=== PATIENT | male | born 1980 | race Caucasian/White ===

== ENCOUNTER → 2018-11-24 | Outpatient (CLI) | payer BC ==
--- NOTE | 2018-11-24 13:35 | ECHOS ---
STRESS ECHOCARDIOGRAM DATE OF SERVICE: 11/24/2018 INDICATIONS: Chest pain. MEDICATIONS: Lisinopril, nadolol, metformin, hydrocodone, lovastatin. BASELINE HEART RATE: 68 BASELINE BLOOD PRESSURE: 143/68 MAXIMUM HEART RATE: 163 MAXIMUM BLOOD PRESSURE: 166/62 85% MPHR: 154 100% MPHR: 181 METS: 12.1 MAXIMUM STAGE REACHED: IV TOTAL EXERCISE TIME: 11 minutes 30 seconds CLINICAL INFORMATION: Baseline rhythm is a sinus mechanism, rate of 68, normal axis, early repolarization changes with nonspecific T-wave inversion. Baseline blood pressure 143/68 mmHg. Patient exercised on Kishore protocol for 11 minutes 30 seconds reaching a peak rate of 163 beats per minute which is equal to 90% maximum predicted heart rate. Peak blood pressure 166/62 mmHg. Test was terminated secondary to fatigue. There was no chest pain. Electrocardiograph monitoring revealed a [address]-segment depression in inferolateral leads that improved in recovery. Baseline echocardiogram revealed normal wall thickening and motion. At peak exercise, there was normal wall motion augmentation with no hypokinesis or dyskinesis. CONCLUSION: 1. Good exercise tolerance with nondiagnostic electrocardiograph stress testing secondary to baseline EKG abnormality. 2. Normal stress echocardiogram with no evidence of stress induced ischemia. MMODL / IJN: [id number] /
== END ==
LOC: RADNMMAIN 09:03
PROVIDERS: ATTEND Internal Medicine
DX: R94.31 Abnormal electrocardiogram [ECG] [EKG] (principal); R07.89 Other chest pain
CPT/HCPCS: 93351

== ENCOUNTER → 2019-08-12 | Outpatient (CLI) | payer BC ==
--- NOTE | 2019-08-12 13:13 | US ---
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 MD felt swelling right parotid gland. Right parotid = 4.4 x 3.5 x 2.0 cm with isoechoic area in mid gland = 0.9 x 0.6 x 0.6 cm with no bloo d flow. This was not seen on contralateral side. Left parotid = 5.5 x 2.9 x 1.6 cm IMPRESSION: Nonspecific right parotid lesion. Consider tissue diagnosis.
== END | disposition home or self-care (01) ==
LOC: RADUSWWP 12:40
PROVIDERS: ATTEND Family Medicine
DX: K11.9 Disease of salivary gland, unspecified (principal)
CPT/HCPCS: 76536

== ENCOUNTER 2019-09-08 12:23 | Day surgery (SDC) | payer BC ==
[2019-09-08 12:47] VITALS: BP 124/84; PULSE 67; RESP 14; TEMP 98
--- NOTE | 2019-09-08 13:30 | US ---
Discontinued fine-needle aspiration HISTORY: Abnormal ultrasound, palpable mass Correlation to ultrasound 08/12/2019 Ultrasound performed of the site of patient's palpable abnormality shows a hypoechoic crescentic focu s with some increased through transmission, echogenic center. Grayscale and color Doppler performed. IMPRESSION: Benign lymph node within the parotid gland. Discontinued biopsy. Follow-up as indicated t o assess for stability.
== END 2019-09-08 13:15 | disposition home or self-care (01) ==
LOC: RADPROMAIN 12:23
PROVIDERS: ATTEND Otolaryngology
DX: K11.8 Other diseases of salivary glands (principal)
CPT/HCPCS: 76536

== ENCOUNTER → 2020-07-28 | Outpatient (CLI) | payer BC ==
--- NOTE | 2020-07-28 10:43 | XR ---
EXAMINATION TYPE: XR chest 2V DATE OF EXAM: 07/28/2020 COMPARISON: None INDICATION: Presurgical clearance TECHNIQUE: Frontal and lateral views of the chest are obtained. FINDINGS: The heart size is normal. The pulmonary vasculature is normal. The lungs are clear. IMPRESSION: 1. No acute pulmonary process.
[2020-07-28 11:10] LABS: HCT 43.3 % (39.0-53.0); HGB 14.5 gm/dL (13.0-17.5); MCH 31.3 pg (25.0-35.0); MCHC 33.4 g/dL (31.0-37.0); MCV 93.6 fL (80.0-100.0); Mean Platelet Volume 7.9; Platelet Count 239 k/uL (150-450); RBC 4.63 m/uL (4.30-5.90); RDW 13.5 % (11.5-15.5); WBC 6.5 k/uL (3.8-10.6)
[2020-07-28 11:21] LABS: African American GFR (CKD) >90 (>60 ml/min/1.73 sqM); Anion Gap 7 mmol/L; Blood Urea Nitrogen 13 mg/dL (9-20); Calcium 9.7 mg/dL (8.4-10.2); Carbon Dioxide 31 mmol/L (22-30); Chloride 103 mmol/L (98-107); Glucose 101 mg/dL (74-99); INR 0.9 (<1.2); Non-African American GFR(CKD) >90 (>60 ml/min/1.73 sqM); Partial Thromboplastin Time 21.9 sec (22.0-30.0); Potassium 4.6 mmol/L (3.5-5.1); Prothrombin Time 9.6 sec (9.0-12.0); Sodium 141 mmol/L (137-145)
[2020-07-28 11:40] LABS: Appearance,Urine Clear (Clear); Bilirubin,Urine Negative (Negative); Blood,Urine Negative (Negative); Color,Urine Yellow; Glucose,Urine (UA) Negative (Negative); Ketones,Urine Negative (Negative); Leukocyte Esterase,Urine Negative (Negative); Nitrite,Urine Negative (Negative); Protein,Urine Negative (Negative); Specific Gravity,Urine 1.025 (1.001-1.035); Urobilinogen,Urine <2.0 mg/dL (<2.0)
== END | disposition home or self-care (01) ==
LOC: RADXRMAIN 08:42
PROVIDERS: ATTEND Orthopaedic Surgery Orthopaedic Surgery of the Spine
DX: E78.5 Hyperlipidemia, unspecified (principal); R00.1 Bradycardia, unspecified; E11.9 Type 2 diabetes mellitus without complications
CPT/HCPCS: 36415; 71046; 80048; 81003; 85027; 85610; 85730; 93005

== ENCOUNTER → 2021-04-17 | Outpatient (CLI) | payer BC ==
--- NOTE | 2021-04-17 08:05 | US ---
EXAMINATION TYPE: US liver DATE OF EXAM: 04/17/2021 COMPARISON: NONE CLINICAL HISTORY: R94.5 Abnormal results of liver function studies. EXAM MEASUREMENTS: Liver Length: 15.5 cm Gallbladder Wall: 0.1 cm CBD: 0.3 cm Right Kidney: 9.6 x 5.5 x 5.4 cm Pancreas: visualized portions wnl, limited by overlying midline bowel gas Liver: increased attenuation, decreased visualization of vessels suggestive of fatty infiltrate Gallbladder: wnl Evidence for sonographic Osman's sign: no CBD: visualized portions wnl, limited by overlying bowel gas Right Kidney: wnl IMPRESSION: Hepatic steatosis
== END | disposition home or self-care (01) ==
LOC: RADUSWWP 07:04
PROVIDERS: ATTEND Family Medicine
DX: K76.0 Fatty (change of) liver, not elsewhere classified (principal)
CPT/HCPCS: 76705

== ENCOUNTER → 2021-06-15 | Outpatient (CLI) | payer BC ==
--- NOTE | 2021-06-15 08:47 | XR ---
EXAMINATION TYPE: XR wrist complete LT DATE OF EXAM: 06/15/2021 CLINICAL HISTORY: pain TECHNIQUE: Frontal, lateral and oblique images of the left wrist are obtained. COMPARISON: None. FINDINGS: There is no acute fracture/dislocation evident. The joint spaces appear within normal kraus its. The overlying soft tissue appears unremarkable. IMPRESSION: There is no acute fracture or dislocation seen. ICD 10 NO FRACTURE, INITIAL EVALUATION
== END | disposition home or self-care (01) ==
LOC: RADXRMAIN 08:20
PROVIDERS: ATTEND Family Medicine
DX: M25.532 Pain in left wrist (principal)

== ENCOUNTER → 2021-08-23 | Outpatient (CLI) | payer BC ==
[2021-08-23 15:11] LABS: Basophils # (A) 0.03 X 10*3/uL (0.00-0.10); Basophils % (A) 0.5 %; Eosinophils % (A) 3.1 %; HCT 45.8 % (39.6-50.0); HGB 14.8 g/dL (13.0-17.0); Lymphocytes # (A) 2.18 X 10*3/uL (0.90-5.00); Lymphocytes % (A) 33.3 %; MCH 29.8 pg (27.0-32.0); MCHC 32.3 g/dL (32.0-37.0); MCV 92.2 fL (80.0-97.0); Mean Platelet Volume 10.8 fL (9.5-12.2); Monocytes # (A) 0.44 X 10*3/uL (0.20-1.00); Monocytes % (A) 6.7 %; Neutrophils # (A) 3.66 X 10*3/uL (1.80-7.70); Neutrophils % (A) 55.8 %; Platelet Count 278 X 10*3/uL (140-440); RBC 4.97 X 10*6/uL (4.40-5.60); RDW 13.2 % (11.5-14.5); WBC 6.55 X 10*3/uL (4.50-10.00)
[2021-08-23 16:07] LABS: % Iron Saturation 18.6 (15.00-50.00)
[2021-08-23 16:18] LABS: African American GFR (CKD) 100.5 (60.0-200.0); Albumin 4.9 g/dL (3.8-4.9); Albumin/Globulin Ratio 2.14 (1.60-3.17); Anion Gap 13.5 mmol/L (10.00-18.00); BUN/Creat Ratio 19.81 Ratio (12.00-20.00); Calcium 9.6 mg/dL (8.7-10.3); Carbon Dioxide 20.7 mmol/L (20.0-27.5); Globulin 2.3 g/dL (1.6-3.3); Non-African American GFR(CKD) 86.7 (60.0-200.0); Potassium 4.5 mmol/L (3.5-5.5); Total Bilirubin 0.4 mg/dL (0.30-1.20); Total Protein 7.2 g/dL (6.2-8.2)
[2021-08-23 17:52] LABS: Hepatitis B Surface Antigen Nonreactive (Nonreactive); Hepatitis C IgG Antibody Nonreactive (Nonreactive)
[2021-08-24 13:05] LABS: Protein, Total 7.4 g/dL (6.2-8.2)
== END | disposition home or self-care (01) ==
LOC: LABWHC1 08:20
PROVIDERS: ATTEND Internal Medicine Gastroenterology
DX: R74.8 Abnormal levels of other serum enzymes (principal)
CPT/HCPCS: 36415; 80053; 82103; 82104; 82390; 82728; 83540; 83550; 84165; 85025; 86038; 86803; 87340

== ENCOUNTER → 2021-10-30 | Outpatient (CLI) | payer BC ==
[2021-10-30 14:45] LABS: HCT 43.4 % (39.6-50.0); HGB 14.3 g/dL (13.0-17.0); MCH 30.7 pg (27.0-32.0); MCHC 32.9 g/dL (32.0-37.0); MCV 93.1 fL (80.0-97.0); Mean Platelet Volume 10.8 fL (9.5-12.2); NRBC Per 100 WBC 0 /100 WBCS (0.0-0.0); Platelet Count 250 X 10*3/uL (140-440); RBC 4.66 X 10*6/uL (4.40-5.60); RDW 13.2 % (11.5-14.5); WBC 8.09 X 10*3/uL (4.50-10.00)
[2021-10-30 15:22] LABS: African American GFR (CKD) 95.5 (60.0-200.0); Anion Gap 12.3 mmol/L (10.00-18.00); BUN/Creat Ratio 12.82 Ratio (12.00-20.00); Blood Urea Nitrogen 14.1 mg/dL (9.0-27.0); Calcium 9.4 mg/dL (8.7-10.3); Carbon Dioxide 22.7 mmol/L (20.0-27.5); Non-African American GFR(CKD) 82.4 (60.0-200.0); Potassium 4.1 mmol/L (3.5-5.5)
== END | disposition home or self-care (01) ==
LOC: LABWHC1 08:45
PROVIDERS: ATTEND Psychiatry & Neurology Neurology
DX: E87.2 Acidosis (principal); Z51.81 Encounter for therapeutic drug level monitoring
CPT/HCPCS: 36415; 80048; 85027

== ENCOUNTER → 2022-02-20 | Outpatient (CLI) | payer BC ==
[2022-02-20 14:51] LABS: African American GFR (CKD) 95.5 (60.0-200.0); Albumin 4.5 g/dL (3.8-4.9); Albumin/Globulin Ratio 1.8 (1.60-3.17); Anion Gap 11.8 mmol/L (10.00-18.00); BUN/Creat Ratio 12.18 Ratio (12.00-20.00); Blood Urea Nitrogen 13.4 mg/dL (9.0-27.0); Carbon Dioxide 22.2 mmol/L (20.0-27.5); Globulin 2.5 g/dL (1.6-3.3); Non-African American GFR(CKD) 82.4 (60.0-200.0); Potassium 3.7 mmol/L (3.5-5.5); Total Bilirubin 0.4 mg/dL (0.30-1.20)
== END | disposition home or self-care (01) ==
LOC: LABWHC1 08:43
PROVIDERS: ATTEND Internal Medicine Gastroenterology
DX: K76.0 Fatty (change of) liver, not elsewhere classified (principal)
CPT/HCPCS: 36415; 80053

== ENCOUNTER → 2023-02-18 | Outpatient (CLI) | payer BC ==
[2023-02-18 15:58] LABS: African American GFR (CKD) 92.8 (60.0-200.0); Albumin 4.5 g/dL (3.8-4.9); Anion Gap 9.2 mmol/L (10.00-18.00); BUN/Creat Ratio 15.54 Ratio (12.00-20.00); Blood Urea Nitrogen 17.4 mg/dL (9.0-27.0); Calcium 9.6 mg/dL (8.7-10.3); Carbon Dioxide 26.2 mmol/L (20.0-27.5); Globulin 2.3 g/dL (1.6-3.3); Potassium 4.2 mmol/L (3.5-5.5); Total Bilirubin 0.4 mg/dL (0.30-1.20); Total Protein 6.8 g/dL (6.2-8.2)
== END | disposition home or self-care (01) ==
LOC: LABWHC1 09:32
PROVIDERS: ATTEND Internal Medicine Cardiovascular Disease
DX: K76.0 Fatty (change of) liver, not elsewhere classified (principal)
CPT/HCPCS: 36415; 80053

== ENCOUNTER 2023-12-22 18:41 | Observation (INO) | payer BC ==
[2023-12-22] MEDS: SODIUM CHLORIDE 0.9% 1,000 ML IV STA (20:08)
--- NOTE | 2023-12-22 20:29 | ED ---
Dizziness HPI - General Chief Complaint: Dizziness Stated Complaint: Abn Labs Time Seen by Provider: 12/22/23 19:42 Source: patient Mode of arrival: ambulatory Limitations: no limitations - History of Present Illness Initial Comments: 43-year-old male presenting with chief complaint of syncopal episode. Patient states that yesterday he was having chest pain, got up out of bed and started walking to the bathroom when he felt dizzy and had a syncopal episode. He was by himself so he does not know how long he was unconscious for. He does have a red spot near left side of his forehead and his eye, he presumes that this is where he hit his head. States that when he woke up his symptoms had resolved. He was advised by friends to seek evaluation. He went to the [facility] today who advised him to report to the ER. Today he is asymptomatic. He is having no chest pain, difficulty breathing, abdominal pain, nausea, vomiting, fever, cough, congestion, sore throat, headache, vision or hearing changes. No history of blood clot or recent surgery. Patient did recently drive to and from [place]. No lower extremity swelling. - Related Data Home Medications Medication Instructions Recorded Confirmed Lovastatin [Mevacor] 40 mg PO HS 09/01/19 09/01/19 lisinopriL [Zestril] 5 mg PO DAILY 09/01/19 09/01/19 metFORMIN HCL [Glucophage] 500 mg PO TID 09/01/19 09/01/19 nadoloL [Nadolol] 40 mg PO DAILY 09/01/19 09/01/19 Allergies Allergy/AdvReac Type Severity Reaction Status Date / Time No Known Allergies Allergy Verified 12/22/23 18:48 Review of Systems ROS Statement: Those systems with pertinent positive or pertinent negative responses have been documented in the HPI. ROS Other: All systems not noted in ROS Statement are negative. Past Medical History Past Medical History: Diabetes Mellitus, Hyperlipidemia Additional Past Medical History / Comment(s): right parotid mass being investigated History of Any Multi-Drug Resistant Organisms: None Reported Past Surgical History: Orthopedic Surgery, Tonsillectomy Additional Past Surgical History / Comment(s): left knee surgery x2, left shoulder surgery Past Anesthesia/Blood Transfusion Reactions: No Reported Reaction Past Alcohol Use History: Rare Past Drug Use History: None Reported - Past Family History Mother Family Medical History: No Reported History General Exam Limitations: no limitations General appearance: alert, in no apparent distress Head exam: Present: atraumatic, normocephalic Eye exam: Present: normal appearance, PERRL, EOMI Pupils: Present: normal accommodation Neck exam: Present: normal inspection. Absent: meningismus Respiratory exam: Present: normal lung sounds bilaterally. Absent: respiratory distress, wheezes, rales, rhonchi, stridor Cardiovascular Exam: Present: regular rate, normal rhythm, normal heart sounds. Absent: systolic murmur, diastolic murmur, rubs, gallop, clicks Extremities exam: Absent: pedal edema Neurological exam: Present: alert, oriented X3 Psychiatric exam: Present: normal affect, normal mood Skin exam: Present: warm, dry Course Vital Signs 12/22/23 12/22/23 12/22/23 18:44 20:17 20:19 Temperature 98.1 F Pulse Rate 77 Pulse Rate [ 75 Right Sitting Pulse Oximetery ] Pulse Rate [ Right Standing Pulse Oximetery ] Pulse Rate [ 73 Right Supine Pulse Oximetery ] Respiratory 16 18 18 Rate Blood Pressure 148/100 Blood Pressure 141/83 [Right Arm Sitting] Blood Pressure [Right Arm Standing] Blood Pressure 125/84 [Right Arm Supine] O2 Sat by Pulse 100 98 98 Oximetry 12/22/23 12/22/23 12/22/23 20:21 22:00 23:02 Temperature 97.6 F Pulse Rate 62 72 Pulse Rate [ Right Sitting Pulse Oximetery ] Pulse Rate [ 71 Right Standing Pulse Oximetery ] Pulse Rate [ Right Supine Pulse Oximetery ] Respiratory 18 18 18 Rate Blood Pressure 132/76 156/92 Blood Pressure [Right Arm Sitting] Blood Pressure 142/91 [Right Arm Standing] Blood Pressure [Right Arm Supine] O2 Sat by Pulse 98 97 100 Oximetry EKG Findings - EKG Comments: EKG Findings:: Sinus rhythm ventricular rate 71. [place] interval 146. QRS 89. QT 361. QTc 383. No ST deviation or T wave inversion. Medical Decision Making - Medical Decision Making Was pt. sent in by a medical professional or institution (, PA, ADMISSION SPECIALIST, urgent care, hospital, or fpc...) When possible be specific @ -No Did you speak to anyone other than the patient for history (EMS, parent, family, police, friend...)? What history was obtained from this source @ -No Did you review nursing and triage notes (agree or disagree)? Why? @ -I reviewed and agree with nursing and triage notes Were old charts reviewed (outside hosp., previous admission, EMS record, old EKG, old radiological studies, urgent care reports/EKG's, fpc records)? Report findings @ -No old charts were reviewed Differential Diagnosis (chest pain, altered mental status, abdominal pain women, abdominal pain men, vaginal bleeding, weakness, fever, dyspnea, syncope, head ache, dizziness, GI bleed, back pain, seizure, CVA, palpatations, mental health, musculoskeletal)? @ -MDM Differential Syncope: Valvular disease, hypertrophic cardiomyopathy, pulmonary embolism, tamponade, tachycardia, bradycardia, TN, hypovolemia, hemorrhage, dissection, anemia, intracranial hemorrhage, seizure, hypoglycemia, carbon monoxide poisoning this is not meant to be an all-inclusive list. EKG interpreted by me (3pts min.). @ -As above X-rays interpreted by me (1pt min.). @ -Chest x-ray shows no acute process CT interpreted by me (1pt min.). @ -None done U/S interpreted by me (1pt. min.). @ -None done What testing was considered but not performed or refused? (CT, X-rays, U/S, labs)? Why? @ -None What meds were considered but not given or refused? Why? @ -None Did you discuss the management of the patient with other professionals (professionals i.e. , PA, ADMISSION SPECIALIST, lab, RT, psych nurse, social service assistant, events and promotions assistant, teacher, executive officer special warfare team, rn field case manager)? Give summary @ -I spoke with Dr. Lopez who accepted admission Was smoking cessation discussed for >3mins.? @ -No Was critical care preformed (if so, how long)? @ -No Were there social determinants of health that impacted care today? How? (Homelessness, low income, unemployed, alcoholism, drug addiction, transporta tion, low edu. Level, literacy, decrease access to med. care, [facility], rehab)? @ -No Was there de-escalation of care discussed even if they declined (Discuss DNR or withdrawal of care, Hospice)? DNR status @ -No What co-morbidities impacted this encounter? (DM, HTN, Smoking, COPD, CAD, Cancer, CVA, ARF, Chemo, Hep., AIDS, mental health diagnosis, sleep apnea, morbid obesity)? @ -None Was patient admitted / discharged? Hospital course, mention meds given and route, prescriptions, significant lab abnormalities, going to OR and other pertinent info. @ -43-year-old male presenting with chief complaint of syncope after an episode of chest pain. History and physical exam were conducted. Lab work shows no leukocytosis or anemia. Negative troponin and D-dimer. He is negative for influenza, RSV, COVID. EKG shows sinus rhythm. Chest x-ray shows no acute process. Urine toxicology positive for TCAs, patient admits to taking muscle relaxers. Patient will be admitted for echocardiogram. He is agreeable with this plan. I discussed this case with my attending Dr. Ruiz Undiagnosed new problem with uncertain prognosis? @ -No Drug Therapy requiring intensive monitoring for toxicity (Heparin, Nitro, Insulin, Cardizem)? @ -No Were any procedures done? @ -No Diagnosis/symptom? @ -Syncope, chest pain Acute, or Chronic, or Acute on Chronic? @ -Acute Uncomplicated (without systemic symptoms) or Complicated (systemic symptoms)? @ -Complicated Side effects of treatment? @ -No Exacerbation, Progression, or Severe Exacerbation? @ -No Poses a threat to life or bodily function? How? (Chest pain, USA, TN, pneumonia, PE, COPD, DKA, ARF, appy, cholecystitis, CVA, Diverticulitis, Homicidal, Suicidal, threat to staff... and all critical care pts) @ -Yes - Lab Data Result diagrams: 12/22/23 20:45 12/22/23 20:08 Lab Results 12/22/23 12/22/23 12/22/23 Range/Units 20:08 20:08 20:08 WBC (3.8-10.6) k/uL RBC (4.30-5.90) m/uL Hgb (13.0-17.5) gm/dL Hct (39.0-53.0) % MCV (80.0-100.0) fL MCH (25.0-35.0) pg MCHC (31.0-37.0) g/dL RDW (11.5-15.5) % Plt Count (150-450) k/uL MPV Neutrophils % % Lymphocytes % % Monocytes % % Eosinophils % % Basophils % % Neutrophils # (1.3-7.7) k/uL Lymphocytes # (1.0-4.8) k/uL Monocytes # (0-1.0) k/uL Eosinophils # (0-0.7) k/uL Basophils # (0-0.2) k/uL PT 10.7 (10.0-12.5) sec INR 1.0 (<1.2) D-Dimer 0.22 (<0.60) mg/L FEU Sodium 142 (137-145) mmol/L Potassium 3.9 (3.5-5.1) mmol/L Chloride 108 H (98-107) mmol/L Carbon Dioxide 24 (22-30) mmol/L Anion Gap 10 mmol/L BUN 15 (9-20) mg/dL Creatinine 1.06 (0.66-1.25) mg/dL Est GFR (CKD-EPI)AfAm >90 (>60 ml/min/1.73 sqM) Est GFR (CKD-EPI)NonAf 86 (>60 ml/min/1.73 sqM) Glucose 159 H (74-99) mg/dL Plasma Lactic Acid Randolph 1.8 (0.7-2.0) mmol/L Calcium 9.2 (8.4-10.2) mg/dL Total Bilirubin 0.6 (0.2-1.3) mg/dL AST 26 (17-59) U/L ALT 45 (4-49) U/L Alkaline Phosphatase 76 (38-126) U/L Troponin I (0.000-0.034) ng/mL Total Protein 7.3 (6.3-8.2) g/dL Albumin 4.4 (3.5-5.0) g/dL Urine Color Urine Appearance (Clear) Urine pH (5.0-8.0) Ur Specific Ilfeld (1.001-1.035) Urine Protein (Negative) Urine Glucose (UA) (Negative) Urine Ketones (Negative) Urine Blood (Negative) Urine Nitrite (Negative) Urine Bilirubin (Negative) Urine Urobilinogen (<2.0) mg/dL Ur Leukocyte Esterase (Negative) Urine Opiates Screen (NotDetected) Ur Oxycodone Screen (NotDetected) Urine Methadone Screen (NotDetected) Ur Barbiturates Screen (NotDetected) U Tricyclic Antidepress (NotDetected) Ur Phencyclidine Scrn (NotDetected) Ur Amphetamines Screen (NotDetected) U Methamphetamines Scrn (NotDetected) U Benzodiazepines Scrn (NotDetected) Urine Cocaine Screen (NotDetected) U Marijuana (THC) Screen (NotDetected) Influenza Type A (PCR) (Not Detectd) Influenza Type B (PCR) (Not Detectd) RSV (PCR) (Not Detectd) SARS-CoV-2 (PCR) (Not Detectd) 12/22/23 12/22/23 12/22/23 Range/Units 20:08 20:08 20:45 WBC 7.7 (3.8-10.6) k/uL RBC 4.39 (4.30-5.90) m/uL Hgb 13.4 (13.0-17.5) gm/dL Hct 40.9 (39.0-53.0) % MCV 93.1 (80.0-100.0) fL MCH 30.5 (25.0-35.0) pg MCHC 32.7 (31.0-37.0) g/dL RDW 13.1 (11.5-15.5) % Plt Count 224 (150-450) k/uL MPV 7.9 Neutrophils % 65 % Lymphocytes % 26 % Monocytes % 5 % Eosinophils % 1 % Basophils % 0 % Neutrophils # 5.0 (1.3-7.7) k/uL Lymphocytes # 2.0 (1.0-4.8) k/uL Monocytes # 0.4 (0-1.0) k/uL Eosinophils # 0.1 (0-0.7) k/uL Basophils # 0.0 (0-0.2) k/uL PT (10.0-12.5) sec INR (<1.2) D-Dimer (<0.60) mg/L FEU Sodium (137-145) mmol/L Potassium (3.5-5.1) mmol/L Chloride (98-107) mmol/L Carbon Dioxide (22-30) mmol/L Anion Gap mmol/L BUN (9-20) mg/dL Creatinine (0.66-1.25) mg/dL Est GFR (CKD-EPI)AfAm (>60 ml/min/1.73 sqM) Est GFR (CKD-EPI)NonAf (>60 ml/min/1.73 sqM) Glucose (74-99) mg/dL Plasma Lactic Acid Randolph (0.7-2.0) mmol/L Calcium (8.4-10.2) mg/dL Total Bilirubin (0.2-1.3) mg/dL AST (17-59) U/L ALT (4-49) U/L Alkaline Phosphatase (38-126) U/L Troponin I <0.012 (0.000-0.034) ng/mL Total Protein (6.3-8.2) g/dL Albumin (3.5-5.0) g/dL Urine Color Urine Appearance (Clear) Urine pH (5.0-8.0) Ur Specific Ilfeld (1.001-1.035) Urine Protein (Negative) Urine Glucose (UA) (Negative) Urine Ketones (Negative) Urine Blood (Negative) Urine Nitrite (Negative) Urine Bilirubin (Negative) Urine Urobilinogen (<2.0) mg/dL Ur Leukocyte Esterase (Negative) Urine Opiates Screen (NotDetected) Ur Oxycodone Screen (NotDetected) Urine Methadone Screen (NotDetected) Ur Barbiturates Screen (NotDetected) U Tricyclic Antidepress (NotDetected) Ur Phencyclidine Scrn (NotDetected) Ur Amphetamines Screen (NotDetected) U Methamphetamines Scrn (NotDetected) U Benzodiazepines Scrn (NotDetected) Urine Cocaine Screen (NotDetected) U Marijuana (THC) Screen (NotDetected) Influenza Type A (PCR) Not Detected (Not Detectd) Influenza Type B (PCR) Not Detected (Not Detectd) RSV (PCR) Not Detected (Not Detectd) SARS-CoV-2 (PCR) Not Detected (Not Detectd) 12/22/23 12/22/23 Range/Units 22:03 22:03 WBC (3.8-10.6) k/uL RBC (4.30-5.90) m/uL Hgb (13.0-17.5) gm/dL Hct (39.0-53.0) % MCV (80.0-100.0) fL MCH (25.0-35.0) pg MCHC (31.0-37.0) g/dL RDW (11.5-15.5) % Plt Count (150-450) k/uL MPV Neutrophils % % Lymphocytes % % Monocytes % % Eosinophils % % Basophils % % Neutrophils # (1.3-7.7) k/uL Lymphocytes # (1.0-4.8) k/uL Monocytes # (0-1.0) k/uL Eosinophils # (0-0.7) k/uL Basophils # (0-0.2) k/uL PT (10.0-12.5) sec INR (<1.2) D-Dimer (<0.60) mg/L FEU Sodium (137-145) mmol/L Potassium (3.5-5.1) mmol/L Chloride (98-107) mmol/L Carbon Dioxide (22-30) mmol/L Anion Gap mmol/L BUN (9-20) mg/dL Creatinine (0.66-1.25) mg/dL Est GFR (CKD-EPI)AfAm (>60 ml/min/1.73 sqM) Est GFR (CKD-EPI)NonAf (>60 ml/min/1.73 sqM) Glucose (74-99) mg/dL Plasma Lactic Acid Randolph (0.7-2.0) mmol/L Calcium (8.4-10.2) mg/dL Total Bilirubin (0.2-1.3) mg/dL AST (17-59) U/L ALT (4-49) U/L Alkaline Phosphatase (38-126) U/L Troponin I (0.000-0.034) ng/mL Total Protein (6.3-8.2) g/dL Albumin (3.5-5.0) g/dL Urine Color Colorless Urine Appearance Clear (Clear) Urine pH 7.0 (5.0-8.0) Ur Specific Ilfeld 1.015 (1.001-1.035) Urine Protein Negative (Negative) Urine Glucose (UA) Negative (Negative) Urine Ketones Negative (Negative) Urine Blood Negative (Negative) Urine Nitrite Negative (Negative) Urine Bilirubin Negative (Negative) Urine Urobilinogen <2.0 (<2.0) mg/dL Ur Leukocyte Esterase Negative (Negative) Urine Opiates Screen Not Detected (NotDetected) Ur Oxycodone Screen Not Detected (NotDetected) Urine Methadone Screen Not Detected (NotDetected) Ur Barbiturates Screen Not Detected (NotDetected) U Tricyclic Antidepress Detected H (NotDetected) Ur Phencyclidine Scrn Not Detected (NotDetected) Ur Amphetamines Screen Not Detected (NotDetected) U Methamphetamines Scrn Not Detected (NotDetected) U Benzodiazepines Scrn Not Detected (NotDetected) Urine Cocaine Screen Not Detected (NotDetected) U Marijuana (THC) Screen Not Detected (NotDetected) Influenza Type A (PCR) (Not Detectd) Influenza Type B (PCR) (Not Detectd) RSV (PCR) (Not Detectd) SARS-CoV-2 (PCR) (Not Detectd) Disposition Clinical Impression: Chest pain, Syncope Disposition: ADMITTED IP TO THIS [facility] Condition: Stable Referrals: Pj Lucia DO [Primary Care Provider] - 1-2 days Time of Disposition: 23:32
[2023-12-22 20:41] LABS: ALT 45 U/L (4-49); AST 26 U/L (17-59); African American GFR (CKD) >90 (>60 ml/min/1.73 sqM); Albumin 4.4 g/dL (3.5-5.0); Alkaline Phosphatase 76 U/L (38-126); Anion Gap 10 mmol/L; Blood Urea Nitrogen 15 mg/dL (9-20); Calcium 9.2 mg/dL (8.4-10.2); Carbon Dioxide 24 mmol/L (22-30); Chloride 108 mmol/L (98-107); Glucose 159 mg/dL (74-99); Non-African American GFR(CKD) 86 (>60 ml/min/1.73 sqM); Potassium 3.9 mmol/L (3.5-5.1); Sodium 142 mmol/L (137-145); Total Bilirubin 0.6 mg/dL (0.2-1.3); Total Protein 7.3 g/dL (6.3-8.2)
[2023-12-22 20:45] LABS: Prothrombin Time 10.7 sec (10.0-12.5)
--- NOTE | 2023-12-22 20:46 | XR ---
EXAMINATION TYPE: XR chest 2V DATE OF EXAM: 12/22/2023 8:29 PM CLINICAL INDICATION:Male, 43 years old with history of chest pain; [facility] COMPARISON: Chest radiographs from 07/28/2020. TECHNIQUE: XR chest 2V Frontal and lateral views of the chest. FINDINGS: Lungs/Pleura: There is no evidence of pleural effusion, focal consolidation, or pneumothorax. Pulmonary vascularity: Unremarkable. Heart/mediastinum: Cardiomediastinal silhouette is unremarkable. Musculoskeletal: No acute osseous pathology. There is fixation hardware in the lower cervical spine. IMPRESSION: No acute cardiopulmonary disease/process.
[2023-12-22 20:55] LABS: Basophils % (A) 0 %; Eosinophils # (A) 0.1 k/uL (0-0.7); Eosinophils % (A) 1 %; HCT 40.9 % (39.0-53.0); HGB 13.4 gm/dL (13.0-17.5); Lymphocytes % (A) 26 %; MCH 30.5 pg (25.0-35.0); MCHC 32.7 g/dL (31.0-37.0); MCV 93.1 fL (80.0-100.0); Mean Platelet Volume 7.9; Monocytes # (A) 0.4 k/uL (0-1.0); Monocytes % (A) 5 %; Neutrophils % (A) 65 %; Platelet Count 224 k/uL (150-450); RBC 4.39 m/uL (4.30-5.90); RDW 13.1 % (11.5-15.5); WBC 7.7 k/uL (3.8-10.6)
[2023-12-22 22:47] LABS: Appearance,Urine Clear (Clear); Bilirubin,Urine Negative (Negative); Blood,Urine Negative (Negative); Color,Urine Colorless; Glucose,Urine (UA) Negative (Negative); Ketones,Urine Negative (Negative); Leukocyte Esterase,Urine Negative (Negative); Nitrite,Urine Negative (Negative); Protein,Urine Negative (Negative); Specific Gravity,Urine 1.015 (1.001-1.035); Urobilinogen,Urine <2.0 mg/dL (<2.0)
[2023-12-22 22:53] LABS: Amphetamine Screen,Urine Not Detected (NotDetected); Barbiturate Screen,Urine Not Detected (NotDetected); Benzodiazepines Screen,Urine Not Detected (NotDetected); Cocaine Screen,Urine Not Detected (NotDetected); Methadone Screen, Urine Not Detected (NotDetected); Opiate Screen,Urine Not Detected (NotDetected); Oxycodone Screen, Urine Not Detected (NotDetected); Phencyclidine Screen,Urine Not Detected (NotDetected); Tricyclic Antidepressant,Urine Detected (NotDetected); Urn Cannabinoid Scrn Not Detected (NotDetected)
[2023-12-22] MEDS ORDERED: NALOXONE 0.4 MG/ML 1 ML VIAL IV PRN (23:32)
--- NOTE | 2023-12-23 03:34 | P.HPIM ---
History of Present Illness H&P Date: 12/22/23 Chief Complaint: Syncope 43-year-old male diabetes mellitus hypertension Patient coming into the hospital for evaluation after syncope. He reports that he was feeling well at his baseline status of health however when he woke up Friday he got up he felt some chest pain then He no he woke up on the floor he crawled back to bed slept again and then woke up later Friday that evening when he met family and friend they all noticed that he had a black eye they grew concerned about his health that is why they urged him to come to the hospital for evaluation. Patient denies anything similar happening to him in the past denies any tongue biting or loss of bladder or bowel control he denies any history of seizure denies any history of heavy alcohol. Denies any recent changes in medication except for Flexeril that went up from 5 to 10 mg about 10 days ago Patient denies any cardiac history. Currently denies any headache denies any focal neurodeficits. He denies any recent travel hospital stay denies any history of blood clots Patient denies tobacco smoking illicit drugs or heavy alcohol review of systems Pertinent positives as noted in HPI. All other systems were reviewed and are negative on exam Constitutional: No acute distress, conversant, pleasant Eyes: Anicteric sclerae, moist conjunctiva, Pupils equal round reactive to light ENMT: NC/AT Oropharynx clear, no erythema, or exudates Neck: Supple, no masses, or JVD No carotid bruits No thyromegaly Lungs: Clear to auscultation Clear to percussion Normal respiratory effort, no accessory muscle use Cardiovascular: Heart regular in rate and rhythm, No murmurs, gallops, or rubs No peripheral edema Abdominal: Soft Nontender, no guarding, rebound or rigidity Abdomen moving with respiration Normoactive bowel sounds Extremities: No digital cyanosis No clubbing Pedal pulses intact and symmetrical Radial pulses intact and symmetrical No calf tenderness Psychiatric: Alert and oriented to person, place and time Appropriate affect fair judgement Neuro Muscles Strength 5/5 in all 4 extremities Sensation to light touch grossly present throughout Cranial nerves II-XII grossly intact Past Medical History Past Medical History: Diabetes Mellitus, Hyperlipidemia Additional Past Medical History / Comment(s): right parotid mass being investigated History of Any Multi-Drug Resistant Organisms: None Reported Past Surgical History: Orthopedic Surgery, Tonsillectomy Additional Past Surgical History / Comment(s): left knee surgery x2, left shoulder surgery Past Anesthesia/Blood Transfusion Reactions: No Reported Reaction Past Alcohol Use History: Rare Past Drug Use History: None Reported - Past Family History Mother Family Medical History: No Reported History Medications and Allergies Home Medications Medication Instructions Recorded Confirmed Type Lovastatin [Mevacor] 40 mg PO HS 09/01/19 09/01/19 History lisinopriL [Zestril] 5 mg PO DAILY 09/01/19 09/01/19 History metFORMIN HCL [Glucophage] 500 mg PO TID 09/01/19 09/01/19 History nadoloL [Nadolol] 40 mg PO DAILY 09/01/19 09/01/19 History Allergies Allergy/AdvReac Type Severity Reaction Status Date / Time No Known Allergies Allergy Verified 12/22/23 18:48 Physical Exam Vitals: Vital Signs Temp Pulse Pulse Pulse Pulse Resp BP 12/22/23 23:02 97.6 F 72 18 156/92 12/22/23 22:00 62 18 132/76 12/22/23 20:21 71 18 12/22/23 20:19 75 18 12/22/23 20:17 73 18 12/22/23 18:44 98.1 F 77 16 148/100 BP BP BP Pulse Ox 12/22/23 23:02 100 12/22/23 22:00 97 12/22/23 20:21 142/91 98 12/22/23 20:19 141/83 98 12/22/23 20:17 125/84 98 12/22/23 18:44 100 Intake and Output 12/22/23 12/22/23 12/23/23 14:59 22:59 06:59 Other: Weight 77.111 kg Results CBC & Chem 7: 12/22/23 20:45 12/22/23 20:08 Labs: Abnormal Lab Results - Last 24 Hours (Table) 12/22/23 12/22/23 Range/Units 20:08 22:03 Chloride 108 H (98-107) mmol/L Glucose 159 H (74-99) mg/dL U Tricyclic Antidepress Detected H (NotDetected) Assessment and Plan Assessment: 43-year-old male with diabetes mellitus hypertension coming in for syncope I discussed case with ED doctor and accepted the admission for cardiac evaluation with anticipated length of stay less than 2 midnights Syncope Rule out cardiac versus neuro Troponins negative EKG normal sinus rhythm Check echocardiogram Continue with neurochecks Check CT of the brain without contrast Check carotid arterial ultrasound bilaterally Gentle IV fluid hydration normal saline 75 cc/h Check orthostatic vitals Troponin negative x 2 Ech Chronic conditions diabetes mellitus Insulin sliding scale Hypertension Continue with lisinopril Continue with nadolol 40 mg daily Check orthostatic vitals in the morning Blood work overall unremarkable hemoglobin 13.4 white count 7.7 sodium 142 potassium 3.9 BUN 15 creatinine 1.06 Acute respiratory viral panel negative for COVID influenza and RSV Full code DVT prophylaxis heparin subcu 3 times daily
[2023-12-23] MEDS ORDERED: DEXTROSE 50% SYRINGE 50 ML IVP PRN ×2 (03:40)
[2023-12-23] MEDS: SODIUM CHLORIDE 0.9% 1,000 ML IV SCH (04:20)
[2023-12-23 06:16] LABS: Glucose,Whole Blood 98 mg/dL (70-110)
[2023-12-23] MEDS: INSULIN ASPART (NovoLOG) 100 UNIT/ML VIAL SQ SCH (06:31)
--- NOTE | 2023-12-23 08:00 | US ---
EXAMINATION TYPE: US carotid duplex BILAT DATE OF EXAM: 12/23/2023 COMPARISON: NONE CLINICAL INDICATION: Male, 43 years old with history of syncope; Patient states he passed out x 2 day s ago. TECHNIQUE: Carotid duplex ultrasound examination. Indirect Doppler criteria was utilized. FINDINGS: EXAM MEASUREMENTS: RIGHT: Peak Systolic Velocity (PSV) cm/sec ----- Right CCA: 74.0 ----- Right ICA: 94.1 ----- Right ECA: 71.2 ICA/CCA ratio: 1.3 RIGHT: End Diastole cm/sec ----- Right CCA: 21.6 ----- Right ICA: 40.7 ----- Right ECA: 8.3 LEFT: Peak Systolic Velocity (PSV) cm/sec ----- Left CCA: 96.1 ----- Left ICA: 88.3 ----- Left ECA: 77.1 ICA/CCA ratio: 0.9 LEFT: End Diastole cm/sec ----- Left CCA: 31.2 ----- Left ICA: 31.8 ----- Left ECA: 14.9 VERTEBRALS (direction of flow): Right Vertebral: Antegrade Left Vertebral: Antegrade Rhythm: Normal GENERAL SURGERY PHYSICIAN ASSISTANT NOTES: Wall thickening seen. No elevated velocities. IMPRESSION: No evidence for hemodynamically significant stenosis Criteria for Assigning % of Stenosis / Diameter reduction (Estimation based on the indirect measurements of the internal carotid artery velocities (ICA PSV). 1. Normal (no stenosis)=ICA PSV < 125 cm/s: ratio < 2.0: ICA EDV<40 cm/s. 2. Less than 50% stenosis=ICA PSV < 125 cm/s: ratio < 2.0: ICA EDV<40 cm/s. 3. 50 to 69% stenosis=ICA PSV of 125 to 230 cm/s: ration 2.0 ? 4.0: ICA EDV 40-100 cm/s. 4. Greater than 70% stenosis to near occlusion= ICA PSV > 230 cm/s: ratio > 4.0: ICA EDV > 100 cm/s. 5. Near occlusion= ICA PSV velocities may be low or undetectable: variable ratio and ICA EDV. 6. Total occlusion=unable to detect flow.
--- NOTE | 2023-12-23 08:11 | CT ---
EXAMINATION TYPE: CT brain wo con DATE OF EXAM: 12/23/2023 COMPARISON: 08/24/2012 INDICATION: Syncope, hit LT side of head DLP: 1154.4 mGycm, Automated exposure control for dose reduction was used. CONTRAST: None CT of the brain is performed utilizing 3 mm thick sections through the posterior fossa and 3 mm thick sections through the remaining calvarium. Study is performed within 24 hours of arrival to the hosp ital. No abnormal hyperdensity is present to suggest an acute intracranial hemorrhage. No mass lesion is evident. No acute infarcts are evident. Ventricles and sulci are appropriate for the patient age. Paranasal sinuses and mastoid air cells within the [id number] are clear. IMPRESSION: 1. No acute intracranial process. Follow-up MRI can be performed as clinically indicated.
[2023-12-23] MEDS ORDERED: lisinopriL 5 MG TAB PO SCH (09:00)
[2023-12-23] MEDS: PROPRANOLOL LA 60 MG CAP.SA.24H PO SCH (09:01)
[2023-12-23] MEDS: TOPIRAMATE 25 MG TAB PO SCH (09:02)
[2023-12-23 12:34] LABS: Glucose,Whole Blood 139 mg/dL (70-110)
--- NOTE | 2023-12-23 13:46 | CA ---
Transthoracic Echo Report Name: Teho Ley Age: 43 Gender: M : 1980 Exam Date: 12/23/2023 11:03 Exam Location: [facility] Ht (in): 66 Wt (lb): 170 Ordering Physician: Yannick Alicea Attending/Referring Phys: Postal Clerk Sanaz Dasilva RDCS Procedure CPT: Indications: chest pain with syncope Cardiac Hx: Technical Quality: Good Contrast 1: Total Dose (mL): Contrast 2: Total Dose (mL): MEASUREMENTS (Male / Female) Normal Values 2D ECHO LV Diastolic Diameter PLAX 3.7 cm 4.2 - 5.9 / 3.9 - 5.3 cm LV Systolic Diameter PLAX 2.5 cm IVS Diastolic Thickness 1.1 cm 0.6 - 1.0 / 0.6 - 0.9 cm LVPW Diastolic Thickness 1.0 cm 0.6 - 1.0 / 0.6 - 0.9 cm LV Relative Wall Thickness 0.5 RV Internal Dim ED PLAX 3.1 cm LA Systolic Diameter LX 3.5 cm 3.0 - 4.0 / 2.7 - 3.8 cm LV Diastolic Volume MOD 4C 89.9 cm??? LV Systolic Volume MOD 4C 38.2 cm??? LV Ejection Fraction MOD 4C 57.5 % LV Cardiac Index MOD 4C 1865.2 cm???/min???m??? LV Diastolic Length 4C 8.3 cm LV Systolic Length 4C 6.6 cm LV Diastolic Volume MOD 2C 87.1 cm??? LV Systolic Volume MOD 2C 45.1 cm??? LV Ejection Fraction MOD 2C 48.2 % LV Cardiac Index MOD 2C 1515.2 cm???/min???m??? LV Diastolic Length 2C 8.3 cm LV Systolic Length 2C 6.8 cm LA Volume 57.7 cm??? 18 - 58 / 22 - 52 cm??? LA Volume Index 30.2 cm???/m??? 16 - 28 cm???/m??? M-MODE Aortic Root Diameter MM 3.0 cm MV E Point Septal Separation 0.3 cm AV Cusp Separation MM 2.4 cm DOPPLER AV Peak Velocity 132.7 cm/s AV Peak Gradient 7.0 mmHg MV Area PHT 3.7 cm??? Mitral E Point Velocity 73.9 cm/s Mitral A Point Velocity 54.0 cm/s Mitral E to A Ratio 1.4 MV Deceleration Time 206.3 ms FINDINGS Left Ventricle Left ventricular ejection fraction is estimated at 55 %. Left ventricular cavity size normal. Left ventricular wall thickness normal. Normal left ventricular wall motion. Right Ventricle Normal right ventricular size. Unable to estimate the right ventricular systolic pressure. Right Atrium Normal right atrial size. Left Atrium Mildly increased left atrial volume. Mitral Valve Structurally normal mitral valve. Trace mitral regurgitation. Aortic Valve Trileaflet aortic valve. No aortic valve stenosis or regurgitation. Tricuspid Valve Structurally normal tricuspid valve. No tricuspid stenosis, regurgitation or prolapse. Pulmonic Valve Structurally normal pulmonic valve. No pulmonic regurgitation. Pericardium No pericardial effusion. Aorta Normal size aortic root and proximal ascending aorta. CONCLUSIONS Left ventricular ejection fraction 55% Trace mitral regurgitation No tricuspid regurgitation No pericardial effusion Previewed by: Dr. Onel Oliver DO (Electronically Signed) Final Date: 23 December 2023 13:45
--- NOTE | 2023-12-23 16:32 | P.DS ---
Providers Date of admission: 12/22/23 23:34 Expected date of discharge: 12/23/23 Attending physician: Alisia Rizzo MD Primary care physician: Pj Lucia Hospital Course: Discharge Diagnosis: Episode of loss of consciousness, possible syncopal episode. Unclear etiology. This occurred the morning of 12/21/2023 and patient did not present to the emergency department until the evening of 12/22/2023 and at that time was free from any complaints. Hypertension Hyperlipidemia Type II dys-ngyxsxc-bfoldojfg diabetes mellitus History of migraines Hospital Course: Patient is a very pleasant 43-year-old male with a past medical history of hypertension, hyperlipidemia, type II ccr-ecmcrlf-ojwhaahso diabetes mellitus, parotid mass, and migraines. He presented to the hospital on 12/22/2023 with a chief complaint of syncopal episode. Patient reports awakening on the morning of 12/21/2023 feeling dizzy/lightheaded and falling into his nightstand. Patient reports he did hit his head and believes he lost consciousness but got back up and went back to bed and slept until 4 PM and upon awakening felt back at his baseline with no further episodes of dizziness/lightheadedness or any other complaints. Patient denied feeling palpitations or chest pain, shortness of breath, headache, changes in vision or hearing, numbness/tingling/weakness in his extremities, or experiencing any involuntary loss of bowel or bladder. Patient reports he came into the emergency department on 12/22/2023 as encouraged by his family stating after they saw his black eye they would not stop nagging him to get evaluated. Upon arrival to the emergency department patient underwent evaluation. Vital signs upon arrival show blood pressure elevated at 148/100, heart rate 77, respiratory rate 16, temp 98.1 F, and SpO2 of 100% on room air. EKG completed showing normal sinus rhythm at 71 bpm with no noted T wave or ST abnormalities showing no signs of acute ischemia upon personal review and interpretation. Labs completed and reviewed. CBC unremarkable. Coagulation profile normal findings. D-dimer negative at 0.22. BMP showing mild hyperchloremia otherwise normal findings. Blood glucose was 159. Magnesium 1.8. Liver profile unremarkable. Troponin was negative at less than 0.012. Urine drug screen positive for tricyclic antidepressants otherwise normal findings. Influenza A, influenza B, RSV, and COVID PCR were negative. Patient was admitted under our services. Troponins trended negative at less than 0.012 x 2 draws. Carotid Dopplers were negative showing no evidence for significant carotid stenosis.. Workup completely negative for acute process. Patient remains free from any complaints or concerns at this time. Ambulated patient throughout ED and he ambulated well with a steady gait with no reports of dizziness/lightheadedness. Medically, patient is stable for discharge at this time. Discussed recommendations with patient to follow-up outpatient with PCP in 1 to 2 days and with chronic disease epidemiologist in 1 week. Physical exam: Vital signs reviewed and stable. General: Nontoxic, no distress and appears stated age. Derm: Skin warm and dry, normal coloration for ethnicity. Head: Atraumatic, normocephalic and symmetric. Eyes: EOMs intact, no lid lag, and anicteric sclera Mouth: no lip lesions, mucus membranes moist Cardiovascular: regular rate and rhythm with normal S1S2, no murmur, positive posterior tibial pulses bilaterally, and cap refill < 2 seconds. Lungs: Respirations even, regular, and unlabored on room air. Lungs CTA bilaterally, no rhonchi, no rales, no wheezing, and no accessory muscle usage. Abdominal: soft, nontender to palpation, no guarding, no appreciable organomegaly Ext: ROM intact. No gross muscle atrophy, no edema, no contractures Neuro: Speech clear, face symmetrical and CN II-XII grossly intact with no noted focal neuro deficits Psych: Alert and oriented to person, place, time, and situation. Appropriate and pleasant affect. A total of 33 minutes of time were spent preparing this complex discharge s Pt was discharged on 12/23/2023 at 4:29 PM. Patient was seen independently by Nurse Practitioner. This document was prepared using [employer] dictation software. Please allow for errors in lithoplate maker while rare they do occur. Ulises Shelley NP rendered care for this patient independently, reviewed the findings and plan as documented in the note above. I did not physically speak with or examine the patient on this date. Patient Condition at Discharge: Stable Plan - Discharge Summary New Discharge Prescriptions: Continue metFORMIN HCL [Glucophage] 500 mg PO TID sitaGLIPtin [Januvia] 50 mg PO DAILY Amitriptyline HCl [Elavil] 20 mg PO HS Topiramate [Topamax] 25 mg PO DAILY lisinopriL [Zestril] 2.5 mg PO DAILY Atorvastatin [Lipitor] 40 mg PO HS Topiramate [Topamax] 50 mg PO HS Cyclobenzaprine [Flexeril] 10 mg PO HS Propranolol LA [Inderal LA] 60 mg PO DAILY Discharge Medication List metFORMIN HCL [Glucophage] 500 mg PO TID 09/01/19 [History] Amitriptyline HCl [Elavil] 20 mg PO HS 12/23/23 [History] Atorvastatin [Lipitor] 40 mg PO HS 12/23/23 [History] Cyclobenzaprine [Flexeril] 10 mg PO HS 12/23/23 [History] Propranolol LA [Inderal LA] 60 mg PO DAILY 12/23/23 [History] Topiramate [Topamax] 25 mg PO DAILY 12/23/23 [History] Topiramate [Topamax] 50 mg PO HS 12/23/23 [History] lisinopriL [Zestril] 2.5 mg PO DAILY 12/23/23 [History] sitaGLIPtin [Januvia] 50 mg PO DAILY 12/23/23 [History] Follow up Appointment(s)/Referral(s): Delfina Mccrary DO [STAFF PHYSICIAN] - 1 Week Pj Lucia DO [Primary Care Provider] - 1-2 days Patient Instructions/Handouts: Syncope (DC) Activity/Diet/Wound Care/Special Instructions: Activity: As tolerated. Diet: Regular diet Special Instructions: Take all of your medications as directed and remember to keep all of your doctor's appointments and follow-up as needed. [place] state law states no driving until free from any syncopal/seizure/loss of consciousness episodes x 6 months. Also recommend avoid climbing ladders, operating dangerous or heavy machinery or unsupervised swimming until free from any other events for 6 months. Thank you for allowing us to participate in your care, it was truly a pleasure having you for our patient!!! Discharge Disposition: HOME SELF-CARE
[2023-12-23 17:51] VITALS: BP 132/80; PULSE 66; RESP 17; TEMP 98.1
[2023-12-23] MEDS ORDERED: TOPIRAMATE 25 MG TAB PO SCH (21:00)
[2023-12-23] MEDS ORDERED: ATORVASTATIN 10 MG TAB PO SCH (21:00)
[2023-12-23] MEDS ORDERED: AMITRIPTYLINE HCL 10 MG TAB PO SCH (21:00)
[2023-12-23] MEDS ORDERED: ATORVASTATIN 40 MG TAB PO SCH (21:00)
== END 2023-12-23 17:12 | disposition home or self-care (01) ==
LOC: EC 18:41 → 6NMEDSUR 23:34
PROVIDERS: ADMIT Internal Medicine; ATTEND Internal Medicine
DX: R55 Syncope and collapse (principal); R07.89 Other chest pain; I10 Essential (primary) hypertension; W01.198A Fall on same level from slipping, tripping and stumbling with subsequent striking against other object, initial encounter; S00.10XA Contusion of unspecified eyelid and periocular area, initial encounter; E11.9 Type 2 diabetes mellitus without complications; G43.909 Migraine, unspecified, not intractable, without status migrainosus; E78.5 Hyperlipidemia, unspecified; K11.8 Other diseases of salivary glands; E87.8 Other disorders of electrolyte and fluid balance, not elsewhere classified; I34.0 Nonrheumatic mitral (valve) insufficiency; Z11.52 Encounter for screening for COVID-19; Z11.59 Encounter for screening for other viral diseases; Z79.84 Long term (current) use of oral hypoglycemic drugs; Z79.899 Other long term (current) drug therapy
CPT/HCPCS: 96360; 96361 ×2; 99285; 36415; 93005; 93306; 85379; 80053; 83605; 84484 ×2; 85025; 85610; 81003; 80306; 87636; 71046; 93880; 70450; G0378

== ENCOUNTER → 2024-02-24 | Outpatient (CLI) | payer BC ==
[2024-02-24 15:33] LABS: Blood Urea Nitrogen 18.3 mg/dL (9.0-27.0); Carbon Dioxide 22.7 mmol/L (21.6-31.8); Chloride 106 mmol/L (96-109); Glucose 107 mg/dL (70-110); Sodium 140 mmol/L (135-145)
[2024-02-24 15:34] LABS: ALT 45 U/L (10-49); AST 29 U/L (14-35); Albumin 4.7 g/dL (3.8-4.9); Albumin/Globulin Ratio 2.04 Ratio (1.60-3.17); Alkaline Phosphatase 80 U/L (41-126); Calcium 9.3 mg/dL (8.7-10.3); Globulin 2.3 g/dL (1.6-3.3); Total Bilirubin 0.5 mg/dL (0.3-1.2)
== END | disposition home or self-care (01) ==
LOC: LABWHC1 07:52
PROVIDERS: ATTEND Internal Medicine Gastroenterology
DX: K76.0 Fatty (change of) liver, not elsewhere classified (principal)
CPT/HCPCS: 36415; 80053

== ENCOUNTER 2024-08-06 17:20 | Inpatient (IN) | payer BC ==
[2024-08-06 17:53] LABS: Basophils % (A) 0 %; Eosinophils % (A) 0 %; HCT 45.9 % (39.0-53.0); HGB 15.2 gm/dL (13.0-17.5); Lymphocytes # (A) 1.6 k/uL (1.0-4.8); Lymphocytes % (A) 12 %; MCH 30.3 pg (25.0-35.0); MCV 91.8 fL (80.0-100.0); Mean Platelet Volume 7.8; Monocytes # (A) 0.7 k/uL (0-1.0); Monocytes % (A) 5 %; Neutrophils # (A) 11.1 k/uL (1.3-7.7); Neutrophils % (A) 82 %; Platelet Count 264 k/uL (150-450); WBC 13.6 k/uL (3.8-10.6)
[2024-08-06 18:05] LABS: INR 0.9 (<1.2); Prothrombin Time 10.4 sec (10.0-12.5)
[2024-08-06 18:10] LABS: ALT 62 U/L (4-49); AST 34 U/L (17-59); African American GFR (CKD) >90 (>60 ml/min/1.73 sqM); Albumin 4.6 g/dL (3.5-5.0); Alkaline Phosphatase 79 U/L (38-126); Anion Gap 10 mmol/L; Blood Urea Nitrogen 25 mg/dL (9-20); Calcium 9.2 mg/dL (8.4-10.2); Carbon Dioxide 20 mmol/L (22-30); Chloride 106 mmol/L (98-107); Glucose 150 mg/dL (74-99); Lipase 164 U/L (23-300); Magnesium 1.9 mg/dL (1.6-2.3); Non-African American GFR(CKD) >90 (>60 ml/min/1.73 sqM); Potassium 4.1 mmol/L (3.5-5.1); Sodium 136 mmol/L (137-145); Total Bilirubin 1.4 mg/dL (0.2-1.3); Total Protein 7.3 g/dL (6.3-8.2)
[2024-08-06 18:11] LABS: Partial Thromboplastin Time 20.8 sec (22.0-30.0)
--- NOTE | 2024-08-06 18:18 | XR ---
EXAMINATION TYPE: XR chest 2V DATE OF EXAM: 08/06/2024 6:06 PM COMPARISON: 12/22/2023 CLINICAL INDICATION: Male, 43 years old with history of Chest Pain, TECHNIQUE: XR chest 2V view(s) obtained. FINDINGS: The heart size is normal. The pulmonary vasculature is normal. The lungs are clear. IMPRESSION: 1. No acute pulmonary process. [facility], , 08/06/2024 6:16 PM
--- NOTE | 2024-08-06 18:21 | ED ---
General Adult HPI - General Chief complaint: Chest Pain Stated complaint: chest pain Time Seen by Provider: 08/06/24 17:23 Source: patient, EMS, RN notes reviewed, old records reviewed Mode of arrival: EMS - History of Present Illness Initial comments: 43-year-old male history of diabetes presents for evaluation of chest pain which has been intermittent over the past several days. Reports as a substernal chest pain. He has no prior history of CAD. He has no pain at the time my evaluation. He states he was at work when the pain came on lasting approximately 30 minutes. He denies worsening with exertion. - Related Data Home Medications Medication Instructions Recorded Confirmed metFORMIN HCL [Glucophage] 500 mg PO BID 09/01/19 08/06/24 Amitriptyline HCl [Elavil] 20 mg PO HS 12/23/23 08/06/24 Atorvastatin [Lipitor] 40 mg PO HS 12/23/23 08/06/24 Cyclobenzaprine [Flexeril] 10 mg PO HS PRN 12/23/23 08/06/24 Propranolol LA [Inderal LA] 60 mg PO DAILY 12/23/23 08/06/24 Topiramate [Topamax] 25 mg PO DAILY 12/23/23 08/06/24 Topiramate [Topamax] 50 mg PO HS 12/23/23 08/06/24 lisinopriL [Zestril] 2.5 mg PO DAILY 12/23/23 08/06/24 sitaGLIPtin [Januvia] 50 mg PO DAILY 12/23/23 08/06/24 Allergies Allergy/AdvReac Type Severity Reaction Status Date / Time No Known Allergies Allergy Verified 08/06/24 20:00 Review of Systems ROS Statement: Those systems with pertinent positive or pertinent negative responses have been documented in the HPI. ROS Other: All systems not noted in ROS Statement are negative. Past Medical History Past Medical History: Diabetes Mellitus, Hyperlipidemia, Hypertension Additional Past Medical History / Comment(s): Type 2 Diabetes, Right parotid mass being investigated, Migranes History of Any Multi-Drug Resistant Organisms: None Reported Past Surgical History: Orthopedic Surgery, Tonsillectomy Additional Past Surgical History / Comment(s): left knee surgery x2, left shoulder surgery, neck surgery Past Anesthesia/Blood Transfusion Reactions: No Reported Reaction Past Psychological History: No Psychological Hx Reported Smoking Status: Never smoker Past Alcohol Use History: Occasional Past Drug Use History: None Reported - Past Family History Mother Family Medical History: No Reported History Father Family Medical History: Coronary Artery Disease (CAD), Myocardial Infarction ([place]) General Exam General appearance: alert, in no apparent distress Head exam: Present: atraumatic, normocephalic Eye exam: Present: normal appearance, PERRL ENT exam: Present: normal exam Neck exam: Present: normal inspection. Absent: tenderness, meningismus Respiratory exam: Present: normal lung sounds bilaterally. Absent: respiratory distress, wheezes Cardiovascular Exam: Present: regular rate, normal rhythm GI/Abdominal exam: Present: soft. Absent: distended, tenderness, guarding Neurological exam: Present: alert, oriented X3, CN II-XII intact. Absent: motor sensory deficit Psychiatric exam: Present: normal affect, normal mood Skin exam: Present: warm, dry, intact. Absent: cyanosis, diaphoretic Course Vital Signs 08/06/24 08/06/24 08/06/24 17:21 17:37 18:18 Temperature 98.5 F 98.2 F Pulse Rate 89 83 Pulse Rate [ 86 Manufacturing Intern ] Respiratory 18 16 Rate Blood Pressure 141/96 139/94 Blood Pressure [Right Arm Sitting] O2 Sat by Pulse 98 98 Oximetry 08/06/24 08/06/24 08/06/24 19:27 20:15 20:30 Temperature Pulse Rate 80 79 70 Pulse Rate [ Manufacturing Intern ] Respiratory 16 13 15 Rate Blood Pressure 137/99 182/127 172/129 Blood Pressure [Right Arm Sitting] O2 Sat by Pulse 98 99 99 Oximetry 08/06/24 08/06/24 20:45 21:00 Temperature 98.2 F Pulse Rate 79 Pulse Rate [ 78 Manufacturing Intern ] Respiratory 20 18 Rate Blood Pressure 137/101 Blood Pressure 144/88 [Right Arm Sitting] O2 Sat by Pulse 99 99 Oximetry Medical Decision Making - Medical Decision Making Was pt. sent in by a medical professional or institution (, PA, COLLATOR OPERATOR, urgent care, hospital, or residential...) When possible be specific @ -Sinus rhythm rate of 78, NV interval 126, QRS duration 93, QTc 376 biphasic T wave in V2 Did you speak to anyone other than the patient for history (EMS, parent, family, police, friend...)? What history was obtained from this source @ -No Did you review nursing and triage notes (agree or disagree)? Why? @ -I reviewed and agree with nursing and triage notes Were old charts reviewed (outside hosp., previous admission, EMS record, old EKG, old radiological studies, urgent care reports/EKG's, residential records)? Report findings @ -No old charts were reviewed Differential Chest Pain: Stable Angina, Unstable Angina, STEMI, NSTEMI Aortic Dissection, Pneumothorax, Musculoskeletal, Esophageal Spasm GERD, Cholecystitis, Pancreatitis, Zoster, this is not meant to be an all-inclusive list. EKG interpreted by me (3pts min.). @ -EKG: Sinus rhythm rate of 78, NV interval 126, QRS duration 93, QTc 376 biphasic T wave in V2. X-rays interpreted by me (1pt min.). @Chest x-ray negative for acute cardiopulmonary findings CT interpreted by me (1pt min.). @ -None done U/S interpreted by me (1pt. min.). @ -None done What testing was considered but not performed or refused? (CT, X-rays, U/S, labs)? Why? @ -None What meds were considered but not given or refused? Why? @ -None Did you discuss the management of the patient with other professionals (professionals i.e. , PA, COLLATOR OPERATOR, lab, RT, psych nurse, family welfare social work professor, supervisor type disk quality control, teacher, campus safety officer, major case detective)? Give summary @Dr. Lopez Was smoking cessation discussed for >3mins.? @ -No Was critical care preformed (if so, how long)? @ -[Yes, 35 minutes Were there social determinants of health that impacted care today? How? (Homelessness, low income, unemployed, alcoholism, drug addiction, transportation, low edu. Level, literacy, decrease access to med. care, [place] [facility], rehab)? @ -No Was there de-escalation of care discussed even if they declined (Discuss DNR or withdrawal of care, Hospice)? DNR status @ -No What co-morbidities impacted this encounter? (DM, HTN, Smoking, COPD, CAD, Cancer, CVA, ARF, Chemo, Hep., AIDS, mental health diagnosis, sleep apnea, morbid obesity)? @ -[Hypertension, hyperlipidemia, diabetes Was patient admitted / discharged? Hospital course, mention meds given and route, prescriptions, significant lab abnormalities, going to OR and other pertinent info. @43-year-old male presenting with intermittent chest pain over the past 3 days. No history of CAD. Initial EKG shows a biphasic T wave in V2. Chest x-ray is clear. He has normal CBC, normal CMP, patient has a minimally elevated troponin at 0.035. This will be trended. The patient will be treated as a non-ST se gment elevated [place] at this time. Case is discussed with Dr. Lopez who will admit the patient. Cardiology placed on consult. Undiagnosed new problem with uncertain prognosis? @ -No Drug Therapy requiring intensive monitoring for toxicity (Heparin, Nitro, Insulin, Cardizem)? @ -No Were any procedures done? @ -No Diagnosis/symptom? @ -[NSTEMI Acute, or Chronic, or Acute on Chronic? @ -Acute Uncomplicated (without systemic symptoms) or Complicated (systemic symptoms)? @ -[default Side effects of treatment? @ -No Exacerbation, Progression, or Severe Exacerbation? @ -No Poses a threat to life or bodily function? How? (Chest pain, [place], [place], pneumonia, PE, COPD, DKA, ARF, appy, cholecystitis, CVA, Diverticulitis, Homicidal, Suicidal, threat to staff... and all critical care pts) @ -Yes, ACS - Lab Data Result diagrams: 08/07/24 07:17 08/06/24 17:32 Lab Results 08/06/24 08/06/24 08/06/24 Range/Units 17:32 17:32 17:32 WBC 13.6 H (3.8-10.6) k/uL RBC 5.00 (4.30-5.90) m/uL Hgb 15.2 (13.0-17.5) gm/dL Hct 45.9 (39.0-53.0) % MCV 91.8 (80.0-100.0) fL MCH 30.3 (25.0-35.0) pg MCHC 33.0 (31.0-37.0) g/dL RDW 13.0 (11.5-15.5) % Plt Count 264 (150-450) k/uL MPV 7.8 Neutrophils % 82 % Lymphocytes % 12 % Monocytes % 5 % Eosinophils % 0 % Basophils % 0 % Neutrophils # 11.1 H (1.3-7.7) k/uL Lymphocytes # 1.6 (1.0-4.8) k/uL Monocytes # 0.7 (0-1.0) k/uL Eosinophils # 0.0 (0-0.7) k/uL Basophils # 0.0 (0-0.2) k/uL PT 10.4 (10.0-12.5) sec INR 0.9 (<1.2) APTT 20.8 L (22.0-30.0) sec Sodium 136 L (137-145) mmol/L Potassium 4.1 (3.5-5.1) mmol/L Chloride 106 (98-107) mmol/L Carbon Dioxide 20 L (22-30) mmol/L Anion Gap 10 mmol/L BUN 25 H (9-20) mg/dL Creatinine 0.94 (0.66-1.25) mg/dL Est GFR (CKD-EPI)AfAm >90 (>60 ml/min/1.73 sqM) Est GFR (CKD-EPI)NonAf >90 (>60 ml/min/1.73 sqM) Glucose 150 H (74-99) mg/dL Calcium 9.2 (8.4-10.2) mg/dL Magnesium 1.9 (1.6-2.3) mg/dL Total Bilirubin 1.4 H (0.2-1.3) mg/dL AST 34 (17-59) U/L ALT 62 H (4-49) U/L Alkaline Phosphatase 79 (38-126) U/L Troponin I (0.000-0.034) ng/mL Total Protein 7.3 (6.3-8.2) g/dL Albumin 4.6 (3.5-5.0) g/dL Lipase 164 (23-300) U/L 08/06/ Range/Units 17:32 WBC (3.8-10.6) k/uL RBC (4.30-5.90) m/uL Hgb (13.0-17.5) gm/dL Hct (39.0-53.0) % MCV (80.0-100.0) fL MCH (25.0-35.0) pg MCHC (31.0-37.0) g/dL RDW (11.5-15.5) % Plt Count (150-450) k/uL MPV Neutrophils % % Lymphocytes % % Monocytes % % Eosinophils % % Basophils % % Neutrophils # (1.3-7.7) k/uL Lymphocytes # (1.0-4.8) k/uL Monocytes # (0-1.0) k/uL Eosinophils # (0-0.7) k/uL Basophils # (0-0.2) k/uL PT (10.0-12.5) sec INR (<1.2) APTT (22.0-30.0) sec Sodium (137-145) mmol/L Potassium (3.5-5.1) mmol/L Chloride (98-107) mmol/L Carbon Dioxide (22-30) mmol/L Anion Gap mmol/L BUN (9-20) mg/dL Creatinine (0.66-1.25) mg/dL Est GFR (CKD-EPI)AfAm (>60 ml/min/1.73 sqM) Est GFR (CKD-EPI)NonAf (>60 ml/min/1.73 sqM) Glucose (74-99) mg/dL Calcium (8.4-10.2) mg/dL Magnesium (1.6-2.3) mg/dL Total Bilirubin (0.2-1.3) mg/dL AST (17-59) U/L ALT (4-49) U/L Alkaline Phosphatase (38-126) U/L Troponin I 0.035 H* (0.000-0.034) ng/mL Total Protein (6.3-8.2) g/dL Albumin (3.5-5.0) g/dL Lipase (23-300) U/L Critical Care Time Critical Care Time: Yes Total Critical Care Time: 35 Disposition Clinical Impression: Acute non-ST elevation myocardial infarction (NSTEMI) Disposition: ADMITTED IP TO THIS HOSP Condition: Stable Is patient prescribed a controlled substance at d/c from ED?: No Time of Disposition: 20:26
[2024-08-06] MEDS: ASPIRIN 325 MG TAB PO STA (19:50)
[2024-08-06] MEDS ORDERED: HEPARIN SODIUM 1,000 UN/ML (10ML VL) IV PRN (20:09)
[2024-08-06] MEDS: ATORVASTATIN 40 MG TAB PO SCH (20:36)
[2024-08-06] MEDS: METOPROLOL TARTRATE 25 MG TAB PO SCH (20:36)
[2024-08-06] MEDS: HEPARIN SODIUM 1,000 UN/ML (10ML VL) IV ONE (20:37)
[2024-08-06] MEDS: HEPARIN SOD,PORK IN 0.45% NACL 25,000 UNIT in 0.45% NACL 1 250ML.BAG IV SCH (20:40)
--- NOTE | 2024-08-06 22:36 | P.HPIM ---
History of Present Illness H&P Date: 08/06/24 Chief Complaint: Atypical chest pain History of present illness; 43-year-old man with diabetes mellitus, hypertension, hyperlipidemia. Presented to the emergency department for further evaluation of chest pain which been intermittent over the past several days. Patient reports he has a substernal chest pain. He has no prior history of CAD. He states he was at work when the pain came on and lasted approximately 30 minutes. Patient states that he had been having some intermittent chest pain, for which his primary care physician started him on a steroid taper. Patient states that after his third day of taking the steroid he noted having some chest pain, which she understood was a potential side effect of taking a steroid. He states that this pain was intermittent, and when it first began it would span across his whole upper chest. He states that in the last couple of days the pain has localized in the center of his chest and he describes it as a sharp, stabbing, pressure-like pain. Additionally, he endorses pain in his left arm in his shoulder and down to the elbow. He states that when he has had this pain he has tried different body positions in an effort to alleviate the pain but yet nothing seems to work. He also states that he is unsure if there is any influence on what he is doing at that time to bring about the pain, stating he has been doing something, and most recently he was lying down when the onset of the pain began. He states he notes some difficulty catching his breath when the pain first onsets, however denies any other associated symptoms. When seen at bedside, the patient is resting comfortably in bed stating that he feels great, and currently has no pain. He does state that while in the emergency department when speaking to the staff he had no pain, however, after they had left his room he notes that the pain onset seemingly out of nowhere the same as it had been in every episode prior. Imaging: -Chest x-ray done in the ER showed no acute cardiopulmonary process -EKG done in the ER showed heart rate of 78, no ST segment elevation or depression seen, biphasic T waves noted in V2 and possibly V3; QTc 376 Vitals: -Blood pressure 137/99, heart rate 80, respiratory rate 16, SpO2 98% on room air Patient admitted to internal medicine service REVIEW OF SYSTEMS: CONSTITUTIONAL: No fever, no malaise, no fatigue. HEENT: No recent visual problems or hearing problems. Denied any sore throat. CARDIOVASCULAR: No chest pain, orthopnea, PND, no palpitations, no syncope. PULMONARY: No shortness of breath, no cough, no hemoptysis. GASTROINTESTINAL: No diarrhea, no nausea, no vomiting, no abdominal pain. NEUROLOGICAL: No headaches, no weakness, no numbness. HEMATOLOGICAL: Denies any bleeding or petechiae. GENITOURINARY: Denies any burning micturition, frequency, or urgency. MUSCULOSKELETAL/RHEUMATOLOGICAL: Denies any joint pain, swelling, or any muscle pain. ENDOCRINE: Denies any polyuria or polydipsia. The rest of the 14-point review of systems is negative. PHYSICAL EXAMINATION: GENERAL: The patient is alert and oriented x3, not in any acute distress. Well developed, well nourished. HEENT: Pupils are round and equally reacting to light. EOMI. No scleral icterus. No conjunctival pallor. Normocephalic, atraumatic. No pharyngeal erythema. No thyromegaly. CARDIOVASCULAR: S1 and S2 present. No murmurs, rubs, or gallops. PULMONARY: Chest is clear to auscultation, no wheezing or crackles. ABDOMEN: Soft, nontender, nondistended, normoactive bowel sounds. No palpable organomegaly. MUSCULOSKELETAL: No joint swelling or deformity. EXTREMITIES: No cyanosis, clubbing, or pedal edema. NEUROLOGICAL: Gross neurological examination did not reveal any focal deficits. SKIN: No rashes. Assessment and plan 43-year-old male presents in the emergency department for further evaluation of intermittent chest pain. Patient does not endorse pain currently, however stated that pain occurred while at work last for 30 minutes. EKG showed biphasic T waves in V2 and V3. Patient admitted to the internal medicine service for further evaluation of the chest pain. #Atypical chest pain, likely secondary to NSTEMI -Trend troponins; initial troponin elevated at 0.035 -Patient given aspirin 325 once in the emergency department -Continue with aspirin 81 mg daily -Continue with Lipitor 40 mg daily -Continue with Lopressor 25 mg twice daily -Continue with nitroglycerin as needed for chest pain -Patient started on, and continuing with heparin drip -Supplemental oxygen as needed -EKG showed biphasic T waves in V2 and V3 -Heart healthy diet -Cardiology consulted #Diabetes mellitus -Glucose on arrival 150 -Continue patient's Januvia 50 mg daily; switched to Tradjenta 5 mg daily in the hospital -Novolog medium dose -Accuchecks ACHS -Hold patient's home metformin #Hypertension -Continue patient lisinopril 2.5 mg daily #Hyperlipidemia -Continue patient Lipitor 40 mg daily #Migraine Headaches -He takes Amitriptyline 20 mg nightly and Topiramate 25 mg daily and 50 mg nightly -Continue home medications GI prohylaxis: Protonix 40 mg daily DVT prophylaxis: Patient is currently on a heparin drip Dictation was produced using [employer] dictation software. please excuse any grammatical, word or spelling errors. Past Medical History Past Medical History: Diabetes Mellitus, Hyperlipidemia, Hypertension Additional Past Medical History / Comment(s): Type 2 Diabetes, Right parotid mass being investigated, Migranes History of Any Multi-Drug Resistant Organisms: None Reported Past Surgical History: Orthopedic Surgery, Tonsillectomy Additional Past Surgical History / Comment(s): left knee surgery x2, left shoulder surgery, neck surgery Past Anesthesia/Blood Transfusion Reactions: No Reported Reaction Past Psychological History: No Psychological Hx Reported Smoking Status: Never smoker Past Alcohol Use History: Occasional Past Drug Use History: None Reported - Past Family History Mother Family Medical History: No Reported History Father Family Medical History: Coronary Artery Disease (CAD), Myocardial Infarction ([place]) Medications and Allergies Home Medications Medication Instructions Recorded Confirmed Type metFORMIN HCL [Glucophage] 500 mg PO BID 09/01/19 08/06/24 History Amitriptyline HCl [Elavil] 20 mg PO HS 12/23/23 08/06/24 History Atorvastatin [Lipitor] 40 mg PO HS 12/23/23 08/06/24 History Cyclobenzaprine [Flexeril] 10 mg PO HS PRN 12/23/23 08/06/24 History Propranolol LA [Inderal LA] 60 mg PO DAILY 12/23/23 08/06/24 History Topiramate [Topamax] 25 mg PO DAILY 12/23/23 08/06/24 History Topiramate [Topamax] 50 mg PO HS 12/23/23 08/06/24 History lisinopriL [Zestril] 2.5 mg PO DAILY 12/23/23 08/06/24 History sitaGLIPtin [Januvia] 50 mg PO DAILY 12/23/23 08/06/24 History Allergies Allergy/AdvReac Type Severity Reaction Status Date / Time No Known Allergies Allergy Verified 08/06/24 20:00 Physical Exam Vitals: Vital Signs Temp Pulse Pulse Resp BP Pulse Ox 08/06/24 19:27 80 16 137/99 98 08/06/24 18:18 98.2 F 83 16 139/94 98 08/06/24 17:37 86 08/06/24 17:21 98.5 F 89 18 141/96 98 Intake and Output 08/06/24 08/06/24 08/06/24 06:59 14:59 22:59 Other: Weight 77.111 kg Results CBC & Chem 7: 08/06/24 17:32 08/06/24 17:32 Labs: Abnormal Lab Results - Last 24 Hours (Table) 08/06/24 08/06/24 08/06/24 Range/Units 17:32 17:32 17:32 WBC 13.6 H (3.8-10.6) k/uL Neutrophils # 11.1 H (1.3-7.7) k/uL APTT 20.8 L (22.0-30.0) sec Sodium 136 L (137-145) mmol/L Carbon Dioxide 20 L (22-30) mmol/L BUN 25 H (9-20) mg/dL Glucose 150 H (74-99) mg/dL Total Bilirubin 1.4 H (0.2-1.3) mg/dL ALT 62 H (4-49) U/L Troponin I (0.000-0.034) ng/mL 08/06/24 Range/Units 17:32 WBC (3.8-10.6) k/uL Neutrophils # (1.3-7.7) k/uL APTT (22.0-30.0) sec Sodium (137-145) mmol/L Carbon Dioxide (22-30) mmol/L BUN (9-20) mg/dL Glucose (74-99) mg/dL Total Bilirubin (0.2-1.3) mg/dL ALT (4-49) U/L Troponin I 0.035 H* (0.000-0.034) ng/mL Assessment and Plan Assessment: I have seen and evaluated the patient today. I Discussed the case with the resident and agree with the resident's findings I edited the assessment and plan as necessary as documented in the resident's note.
[2024-08-06] MEDS: AMITRIPTYLINE HCL 10 MG TAB PO SCH (22:38)
[2024-08-07 03:21] VITALS: RESP 16
[2024-08-07 05:59] LABS: Glucose,Whole Blood 117 mg/dL (70-110)
[2024-08-07] MEDS: PANTOPRAZOLE 40 MG TABLET PO SCH (06:02)
[2024-08-07] MEDS: INSULIN ASPART (NovoLOG) 100 UNIT/ML VIAL SQ SCH (06:02)
[2024-08-07 07:38] LABS: Basophils % (A) 0 %; Eosinophils # (A) 0.1 k/uL (0-0.7); Eosinophils % (A) 0 %; HCT 43.7 % (39.0-53.0); HGB 14.1 gm/dL (13.0-17.5); Lymphocytes # (A) 4.3 k/uL (1.0-4.8); Lymphocytes % (A) 35 %; MCH 30.1 pg (25.0-35.0); MCHC 32.3 g/dL (31.0-37.0); MCV 93.1 fL (80.0-100.0); Mean Platelet Volume 7.7; Monocytes # (A) 0.7 k/uL (0-1.0); Monocytes % (A) 6 %; Neutrophils % (A) 57 %; Platelet Count 216 k/uL (150-450); RDW 13.2 % (11.5-15.5); WBC 12.3 k/uL (3.8-10.6)
[2024-08-07] MEDS: NITROGLYCERIN SL TABS 0.4 MG TAB SUBLINGUAL PRN (08:13)
[2024-08-07] MEDS ORDERED: ASPIRIN 325 MG TAB PO SCH (09:00)
[2024-08-07] MEDS: TOPIRAMATE 25 MG TAB PO SCH ×2 (09:15→20:47)
[2024-08-07] MEDS: ASPIRIN 81 MG PO SCH (09:15)
[2024-08-07] MEDS: LINAGLIPTIN 5 MG TABLET PO SCH (09:15)
[2024-08-07] MEDS ORDERED: ALPRAZolam 0.25 MG TAB PO PRN (10:31)
[2024-08-07] MEDS ORDERED: NITROGLYCERIN SL TABS 0.4 MG TAB SUBLINGUAL PRN (10:31)
[2024-08-07] MEDS ORDERED: ALPRAZolam 0.5 MG TAB PO PRN (10:31)
[2024-08-07] MEDS: ASPIRIN 325 MG TAB PO STA (11:26)
[2024-08-07] MEDS: SODIUM CHLORIDE 0.9% 1,000 ML in EMPTY BAG 1 BAG IV SCH (11:32)
[2024-08-07] MEDS: ATORVASTATIN 80 MG TAB PO STA (11:33)
[2024-08-07 11:40] LABS: Glucose,Whole Blood 136 mg/dL (70-110)
--- NOTE | 2024-08-07 12:13 | P.CRDCN ---
History of Present Illness History of present illness: HISTORY OF PRESENT ILLNESS: This is a 43-year-old male with a past medical history significant for hyperlipidemia, diabetes, and headaches. 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 We have been asked to see the patient in consultation for chest pain. Patient examined at the bedside. Patient states for the past 3 days he has been having chest discomfort. He states that he was started on steroids for some neck discomfort and was told he may have chest pain as a side effect of the steroids so he initially did not think much of it. He states the pain would last for about 20 minutes when it would, and then subside on its own. He states he had another episode of chest discomfort yesterday at work when his boss recommended that he come to the hospital for further evaluation. Patient states that he has radiation into his left arm and shoulder. Denies any nausea or vomiting. Denies any shortness of breath. The patient did have another episode of chest discomfort this morning. He received sublingual nitro with relief of his chest pain. He is a non-smoker. He reports occasional alcohol use. He denies any drug use occluding marijuana. He reports a family history of premature coronary artery disease and states that his dad had a CABG when he was in his late 40s and has also had multiple stents. The patient is prescribed lisinopril and propranolol on an outpatient basis but he denies a history of hypertension. He states that he was prescribed propranolol for his headaches. DIAGNOSTICS: - EKG reveals sinus mechanism with biphasic T waves V2-V3 - Chest xray negative for acute process - Laboratory data: WBC 12.3. Hemoglobin 14.1. Platelet count 216. Sodium 136. Potassium 4.1. BUN 25. Creatinine 0.94. Troponin 0.035. 0.058. 0.064. 0.034. - Current home cardiac medications include Lipitor 40 mg at night, lisinopril 2.5 mg daily, propranolol 60 mg daily - Most recent echocardiogram obtained in December 2023 revealed ejection fraction 55%, trace MR - Cardiac catheterization history: patient denies REVIEW OF SYSTEMS: At the time of my exam: CONSTITUTIONAL: Denies fever or chills. HEENT: Denies blurred vision, vision changes, or eye pain. Denies hemoptysis CARDIOVASCULAR: Denies chest pain. Denies orthopnea. Denies PND. Denies palpitations RESPIRATORY: Denies shortness of breath. GASTROINTESTINAL: Denies abdominal pain. Denies nausea or vomiting. HEMATOLOGIC: Denies bleeding disorders. GENITOURINARY: Denies any blood in urine. SKIN: Denies pruitis. Denies rash. PHYSICAL EXAM: VITAL SIGNS: Reviewed. GENERAL: Well-developed in no acute distress. HEENT: Head is normocephalic. Pupils are equal, round. Sclerae anicteric. Mucous membranes of the mouth are moist. Neck supple. No JVD or thyromegaly LUNGS: Respirations even and unlabored. Lungs essentially clear to auscultation bilaterally. HEART: Regular rate and rhythm. S1 and S2 heard. ABDOMEN: Soft. Nondistended. Nontender. EXTREMITIES: Normal range of motion. No clubbing or cyanosis. Peripheral pulses intact. No lower extremity edema NEUROLOGIC: Awake and alert. Oriented x 3. ASSESSMENT: Chest pain Non-STEMI Hypertension Hyperlipidemia Diabetes History of headaches Family history of premature coronary artery disease PLAN: Obtain 2D echo to assess cardiac structure and function Continue aspirin 81 mg daily and atorvastatin. Increase dosage to 80 mg at night Continue lisinopril. Increase dosage to 5mg daily. Patient started on metoprolol tartrate 25 mg twice a day Add Nitropaste Continue IV heparin Patient to undergo cardiac catheterization today with Dr. Christian Further recommendations pending patient course Nurse practitioner note has been reviewed by physician. Signing provider agrees with the documented findings, assessment, and plan of care documented by AIRCRAFT SHIPPING CHECKER as a scribe. Past Medical History Past Medical History: Diabetes Mellitus, Hyperlipidemia, Hypertension Additional Past Medical History / Comment(s): Type 2 Diabetes, Right parotid mass being investigated, Migranes History of Any Multi-Drug Resistant Organisms: None Reported Past Surgical History: Orthopedic Surgery, Tonsillectomy Additional Past Surgical History / Comment(s): left knee surgery x2, left shoulder surgery, neck surgery Past Anesthesia/Blood Transfusion Reactions: No Reported Reaction Past Psychological History: No Psychological Hx Reported Smoking Status: Never smoker Past Alcohol Use History: Occasional Past Drug Use History: None Reported - Past Family History Mother Family Medical History: No Reported History Father Family Medical History: Coronary Artery Disease (CAD), Myocardial Infarction ([place]) Medications and Allergies Home Medications Medication Instructions Recorded Confirmed Type metFORMIN HCL [Glucophage] 500 mg PO BID 09/01/19 08/06/24 History Amitriptyline HCl [Elavil] 20 mg PO HS 12/23/23 08/06/24 History Atorvastatin [Lipitor] 40 mg PO HS 12/23/23 08/06/24 History Cyclobenzaprine [Flexeril] 10 mg PO HS PRN 12/23/23 08/06/24 History Propranolol LA [Inderal LA] 60 mg PO DAILY 12/23/23 08/06/24 History Topiramate [Topamax] 25 mg PO DAILY 12/23/23 08/06/24 History Topiramate [Topamax] 50 mg PO HS 12/23/23 08/06/24 History lisinopriL [Zestril] 2.5 mg PO DAILY 12/23/23 08/06/24 History sitaGLIPtin [Januvia] 50 mg PO DAILY 12/23/23 08/06/24 History Allergies Allergy/AdvReac Type Severity Reaction Status Date / Time No Known Allergies Allergy Verified 08/06/24 20:00 Physical Exam Vitals: Vital Signs Temp Pulse Pulse Resp BP BP Pulse Ox 08/07/24 03:20 98.3 F 72 16 124/87 98 08/07/24 00:00 98.2 F 80 18 136/74 96 08/06/24 21:00 98.2 F 78 18 144/88 99 08/06/24 20:45 79 20 137/101 99 08/06/24 20:30 70 15 172/129 99 08/06/24 20:15 79 13 182/127 99 08/06/24 19:27 80 16 137/99 98 08/06/24 18:18 98.2 F 83 16 139/94 98 08/06/24 17:37 86 08/06/24 17:21 98.5 F 89 18 141/96 98 Intake and Output 08/06/24 08/07/24 08/07/24 22:59 06:59 14:59 Intake Total 790 Balance 790 Intake: Oral 790 Other: Weight 77.111 kg 72.8 kg Results 08/07/24 07:17 08/06/24 17:32 Cardiac Enzymes 08/06/24 08/06/24 08/06/24 Range/Units 17:32 17:32 20:17 AST 34 (17-59) U/L Troponin I 0.035 H* 0.058 H* (0.000-0.034) ng/mL 08/06/24 08/07/24 Range/Units 22:29 07:17 AST (17-59) U/L Troponin I 0.064 H* 0.034 (0.000-0.034) ng/mL Coagulation 08/06/24 08/07/24 08/07/24 Range/Units 17:32 03:03 07:17 PT 10.4 11.0 (10.0-12.5) sec APTT 20.8 L 49.7 H (22.0-30.0) sec CBC 08/06/24 08/07/24 Range/Units 17:32 07:17 WBC 13.6 H 12.3 H (3.8-10.6) k/uL RBC 5.00 4.70 (4.30-5.90) m/uL Hgb 15.2 14.1 (13.0-17.5) gm/dL Hct 45.9 43.7 (39.0-53.0) % Plt Count 264 216 (150-450) k/uL Comprehensive Metabolic Panel 08/06/24 Range/Units 17:32 Sodium 136 L (137-145) mmol/L Potassium 4.1 (3.5-5.1) mmol/L Chloride 106 (98-107) mmol/L Carbon Dioxide 20 L (22-30) mmol/L BUN 25 H (9-20) mg/dL Creatinine 0.94 (0.66-1.25) mg/dL Glucose 150 H (74-99) mg/dL Calcium 9.2 (8.4-10.2) mg/dL AST 34 (17-59) U/L ALT 62 H (4-49) U/L Alkaline Phosphatase 79 (38-126) U/L Total Protein 7.3 (6.3-8.2) g/dL Albumin 4.6 (3.5-5.0) g/dL Current Medications Generic Name Dose Route Start Last Admin Trade Name Freq PRN Reason Stop Dose Admin Amitriptyline HCl 20 mg 08/06/24 22:30 08/06/24 22:38 Amitriptyline Hcl 10 Mg Tab PO 20 mg HS JAMI Administration Aspirin 81 mg 08/07/24 09:00 08/07/24 09:15 Aspirin 81 Mg PO 81 mg DAILY JAMI Administration Atorvastatin Calcium 40 mg 08/06/24 21:00 08/06/24 20:36 Atorvastatin 40 Mg Tab PO 40 mg HS JAMI Administration Heparin Sodium (Porcine) 0 unit 08/06/24 20:09 Heparin Sodium 1,000 Un/Ml (10ml Vl) IV PER PROTOCOL PRN Low PTT Protocol Heparin Sodium/Sodium Chloride 250 mls @ 9.253 mls/hr 08/06/24 20:15 08/06/24 20:40 25,000 unit/ Sodium Chloride IV 12 units/kg/hr .Q24H JAMI 9.253 mls/hr Administration Protocol 12 UNITS/KG/HR Insulin Aspart 0 unit 08/07/24 07:30 08/07/24 06:02 Insulin Aspart (Novolog) 100 Unit/Ml Vial SQ Not Given ACHS JAMI Protocol Linagliptin 5 mg 08/07/24 09:00 08/07/24 09:15 Linagliptin 5 Mg Tablet PO 5 mg DAILY JAMI Administration Lisinopril 2.5 mg 08/07/24 09:00 08/07/24 09:15 Lisinopril 2.5 Mg Tab PO 2.5 mg DAILY JAMI Administration Metoprolol Tartrate 25 mg 08/06/24 21:00 08/07/24 09:15 Metoprolol Tartrate 25 Mg Tab PO 25 mg BID JAMI Administration Nitroglycerin 0.4 mg 08/06/24 20:13 08/07/24 08:13 Nitroglycerin Sl Tabs 0.4 Mg Tab SUBLINGUAL 0.4 mg Q5M PRN Administration Chest Pain Pantoprazole Sodium 40 mg 08/07/24 07:30 08/07/24 06:02 Pantoprazole 40 Mg Tablet PO Not Given [facility] Topiramate 25 mg 08/07/24 09:00 08/07/24 09:15 Topiramate 25 Mg Tab PO 25 mg DAILY JAMI Administration Topiramate 50 mg 08/07/24 21:00 Topiramate 25 Mg Tab PO HS JAMI Intake and Output 08/06/24 08/07/24 08/07/24 22:59 06:59 14:59 Intake Total 790 Balance 790 Intake: Oral 790 Other: Weight 77.111 kg 72.8 kg 08/07/24 07:17 08/06/24 17:32
[2024-08-07] MEDS: NITROGLYCERIN OINT 1 INCH/GM PACKET TOPICAL SCH (12:38)
[2024-08-07] MEDS: ATORVASTATIN 80 MG TAB PO SCH (12:40)
--- NOTE | 2024-08-07 12:50 | P.PN ---
Subjective Progress Note Date: 08/07/24 Hospital course: 43-year-old male with diabetes mellitus, hypertension and hyperlipidemia comes to the ER with chief complaint of intermittent substernal chest pain over the past several days. Initial lab work in the ER shows uptrending troponin levels and EKG is positive for biphasic T waves in V2 and V3. Cardiology has been consulted and patient is to undergo left heart catheterization today. Subjective: Patient seen and examined at the bedside. Patient not complaining of chest pain, shortness of breath, nausea and vomiting. All Systems reviewed and pertinent positives and negatives noted in HPI, all other symptoms are negative Objective: Vital signs reviewed. General: non toxic, no distress, appears at stated age, normal weight Derm: no unusual rashes/lesions, warm Head: atraumatic, normocephalic, symmetric Eyes: EOMI, no lid lag, anicteric sclera, pupils equal round reactive to light ENT: Nose and ears atraumatic Neck: No cervical lymphadenopathy, trachea midline, supple Mouth: no lip lesion, mucus membranes moist Cardiovascular: S1S2 reg, no murmur, positive dorsalis pedis pulse bilateral, no edema Lungs: CTA bilateral, no rhonchi, no rales, no accessory muscle use Abdominal: soft, nontender to palpation, no guarding Ext: muscle strength 5 out of 5 in all 4 extremities grossly, no gross muscle atrophy, no contractures, Neuro: CN II-XI grossly intact, no gross focal neuro deficits Psych: Alert, oriented, appropriate affect Data reviewed today: Labs: WBC 12.3, hemoglobin 14.1, MCV 93.1, platelet count 216, glucose 136 Images: No new imaging Assessment and Plan: # NSTEMI versus coronary vasospasm -Troponin trending down after reaching maximum value of 0.064 Aspirin 81 mg p.o. daily Lipitor 40 mg p.o. daily Continue with Lopressor 25 mg twice daily Continue with nitroglycerin as needed for chest pain Continue with heparin drip Supplemental oxygen as needed EKG showed biphasic T waves in V2 and V3 Heart healthy diet Cardiology consulted, note reviewed, left heart catheterization today Order lipid panel Order echocardiogram #Diabetes mellitus -Glucose on arrival 150 -Continue patient's Januvia 50 mg daily; switched to Tradjenta 5 mg daily in the hospital -Novolog medium dose -Accuchecks ACHS -Hold patient's home metformin #Hypertension -Continue patient lisinopril 2.5 mg daily #Hyperlipidemia -Continue patient Lipitor 40 mg daily #Migraine Headaches -He takes Amitriptyline 20 mg nightly and Topiramate 25 mg daily and 50 mg nightly -Continue home medications GI prohylaxis: Protonix 40 mg daily DVT prophylaxis: Patient is currently on a heparin drip Code Status: Undetermined Anticipated discharge place: Pending clinical course Anticipated discharge date: Pending clinical course I saw and evaluated the patient during the palomo and critical portions of this encounter, and discussed the case in detail with the resident author of this note, I agree with the Assessment and Plan, and my changes, if any, are highlighted in blue. Objective - Vital Signs Vital signs: Vital Signs Temp 98.2 F 08/07/24 08:10 Pulse 69 08/07/24 08:40 Resp 16 08/07/24 08:40 BP 141/80 08/07/24 08:40 Pulse Ox 99 08/07/24 08:40 FiO2 Intake & Output 08/06/24 08/07/24 08/07/24 18:59 06:59 18:59 Intake Total 790 Balance 790 Weight 77.111 kg 72.8 kg Intake: Oral 790 - Labs CBC & Chem 7: 08/07/24 07:17 08/06/24 17:32 Labs: Abnormal Lab Results - Last 24 Hours (Table) 08/06/24 08/06/24 08/06/24 Range/Units 17:32 17:32 17:32 WBC 13.6 H (3.8-10.6) k/uL Neutrophils # 11.1 H (1.3-7.7) k/uL APTT 20.8 L (22.0-30.0) sec Sodium 136 L (137-145) mmol/L Carbon Dioxide 20 L (22-30) mmol/L BUN 25 H (9-20) mg/dL Glucose 150 H (74-99) mg/dL POC Glucose (mg/dL) (70-110) mg/dL Total Bilirubin 1.4 H (0.2-1.3) mg/dL ALT 62 H (4-49) U/L Troponin I (0.000-0.034) ng/mL 08/06/24 08/06/24 08/06/24 Range/Units 17:32 20:17 22:29 WBC (3.8-10.6) k/uL Neutrophils # (1.3-7.7) k/uL APTT (22.0-30.0) sec Sodium (137-145) mmol/L Carbon Dioxide (22-30) mmol/L BUN (9-20) mg/dL Glucose (74-99) mg/dL POC Glucose (mg/dL) (70-110) mg/dL Total Bilirubin (0.2-1.3) mg/dL ALT (4-49) U/L Troponin I 0.035 H* 0.058 H* 0.064 H* (0.000-0.034) ng/mL 08/07/24 08/07/24 08/07/24 Range/Units 03:03 05:57 07:17 WBC 12.3 H (3.8-10.6) k/uL Neutrophils # (1.3-7.7) k/uL APTT 49.7 H (22.0-30.0) sec Sodium (137-145) mmol/L Carbon Dioxide (22-30) mmol/L BUN (9-20) mg/dL Glucose (74-99) mg/dL POC Glucose (mg/dL) 117 H (70-110) mg/dL Total Bilirubin (0.2-1.3) mg/dL ALT (4-49) U/L Troponin I (0.000-0.034) ng/mL 08/07/24 Range/Units 11:39 WBC (3.8-10.6) k/uL Neutrophils # (1.3-7.7) k/uL APTT (22.0-30.0) sec Sodium (137-145) mmol/L Carbon Dioxide (22-30) mmol/L BUN (9-20) mg/dL Glucose (74-99) mg/dL POC Glucose (mg/dL) 136 H (70-110) mg/dL Total Bilirubin (0.2-1.3) mg/dL ALT (4-49) U/L Troponin I (0.000-0.034) ng/mL
[2024-08-07] MEDS: IV FLUID CONTINUATION 1,000 ML IV ONE (12:55)
[2024-08-07 13:06] LABS: Chol/HDL Ratio 3.02 Ratio; LDL Cholesterol,Calculated 73.5 mg/dL (0.0-131.0)
[2024-08-07] MEDS: MIDAZOLAM 2 MG/2 ML VIAL IVP ONE (13:53)
[2024-08-07] MEDS: fentaNYL (PF) 50 MCG/1 ML VIAL IVP ONE (13:53)
[2024-08-07] MEDS: LIDOCAINE 1% INJ 10MG/ML (20 ML MDV) SQ ONE (13:54)
[2024-08-07] MEDS: VERAPAMIL SYRINGE (5 MG/10 ML) INTRAARTER ONE (13:56)
[2024-08-07] MEDS: HEPARIN SODIUM 1,000 UN/ML (10ML VL) IVP ONE (13:58)
[2024-08-07] MEDS: HEPARIN SODIUM,PORCINE 10,000 UNIT in SODIUM CHLORIDE 0.9% 1,000 ML IRRIGATION PRN (14:02)
[2024-08-07] MEDS: HEPARIN SODIUM,PORCINE (1 ML) 2,500 UNIT in SODIUM CHLORIDE 0.9% 250 ML IRRIGATION PRN (14:02)
[2024-08-07] MEDS: NITROGLYCERIN 1000MCG/10ML SYRINGE INTRACORON ONE (14:07)
[2024-08-07] MEDS: IOPAMIDOL-370 100ML BTL INJ ONE (14:14)
[2024-08-07] MEDS ORDERED: RX INFO: IV CONTRAST WAS GIVEN 1 EACH MISC MISCELLANE PRN (14:25)
--- NOTE | 2024-08-07 14:34 | P.CARDCATH ---
Date of Procedure: 08/07/24 Description of Procedure: Cardiac Catheterization: The patient is a 43-year-old male with a known history of hyperlipidemia and diabetes who presented with symptoms of chest discomfort and had troponin elevation with biphasic T waves anteriorly. Recommendations were made regarding cardiac catheterization, the risks and the complications were discussed with the patient who is in full understanding and agreement. 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 Using Xylocaine Anesthesia and modified Seldinger technique, a 6-Tajik sheath was introduced in the right radial artery . Subsequently, selective coronary angiography was performed using a 5-Tajik 3.5 bend Saima catheter. Multiple views of the coronary artery including hemiaxial views were obtained. The 5 Tajik pigtail catheter was used to cross the aortic valve and LVEDP was calculated. A 30 degree BRAVO view of the left ventricle was performed. Following that, catheter and sheath were removed. Hemostasis was obtained with deployment of vascular band . There was no immediate complication. Patient was returned to room in stable condition. Of note, the patient received a total of 4000 units of intravenous heparin as well as intra-arterial verapamil. Findings: Left main: This is a large size vessel, bifurcating into LAD and left circumflex, left main has no obstructive disease LAD: This is a large size vessel, reaching to the apex, giving rise to a small diagonal branch in the midsegment. On the initial pictures the LAD appears to be diffusely disease extending from the proximal to the segment after the diagonal branch with an area of stenosis around the diagonal branch takeoff of about 70%, subsequently patient received intracoronary nitroglycerin with significant improvement in the caliber and resolution of white was a vasospasm with minimal plaque of maybe 10%. The rest of the vessel has no high-grade stenosis. Left circumflex: [This is a large nondominant vessel, giving rise to 2 obtuse marginal branch of large caliber, the left circumflex and its branches have no obstructive disease] RCA: This is a large dominant vessel, bifurcating distally to PDA and PLV. The proximal RCA has 20% eccentric lesion, the rest of the vessel has no high-grade stenosis Left Ventriculogram: Performed in the 30 degree BRAVO view and revealed normal left ventricular size and systolic function ejection fraction is estimated to 60%, there was no significant mitral regurgitation Hemodynamics: There was no gradient across aortic valve, LVEDP was 12-14 mmHg Conclusion: 1. Diffuse vasospastic disease in the proximal and mid LAD, resolved with intracoronary nitroglycerin with minimal plaque 2. Mild disease in the proximal RCA 3. No obstructive disease in the left circumflex 4. Normal ventricle size and systolic function Recommendations: The patient appears to have vasospastic disease, I will add calcium channel jennifer to his regimen and depending on his progress further recommendations will be made. The findings and the recommendations were discussed with the patient and the family and they were in full understanding and agreement. Duration of sedation is 22 minutes.
[2024-08-07] MEDS: amLODIPine 5 MG TAB PO SCH (15:03)
[2024-08-07] MEDS: SODIUM CHLORIDE 0.9% 1,000 ML IV SCH (15:05)
--- NOTE | 2024-08-07 16:09 | CA ---
Transthoracic Echo Report Name: Theo Ley Age: 43 Gender: M : 1980 Exam Date: 08/07/2024 09:35 Exam Location: [facility] Ht (in): 66 Wt (lb): 160 Ordering Physician: Dorie Nicolas Attending/Referring Phys: [id number], Maria Isabel Legal Secretary Sanaz Dasilva RDCS Procedure CPT: Indications: CP, elevated trops Cardiac Hx: Technical Quality: Good Contrast 1: Total Dose (mL): Contrast 2: Total Dose (mL): MEASUREMENTS (Male / Female) Normal Values 2D ECHO LV Diastolic Diameter PLAX 3.8 cm 4.2 - 5.9 / 3.9 - 5.3 cm LV Systolic Diameter PLAX 2.7 cm IVS Diastolic Thickness 1.2 cm 0.6 - 1.0 / 0.6 - 0.9 cm LVPW Diastolic Thickness 1.2 cm 0.6 - 1.0 / 0.6 - 0.9 cm LV Relative Wall Thickness 0.6 RV Internal Dim ED PLAX 2.6 cm LA Systolic Diameter LX 3.3 cm 3.0 - 4.0 / 2.7 - 3.8 cm LV Diastolic Volume MOD 4C 85.4 cm??? LV Systolic Volume MOD 4C 42.4 cm??? LV Ejection Fraction MOD 4C 50.3 % LV Cardiac Index MOD 4C 1508.3 cm???/min???m??? LV Diastolic Length 4C 8.2 cm LV Systolic Length 4C 7.3 cm LV Diastolic Volume MOD 2C 109.7 cm??? LV Systolic Volume MOD 2C 54.3 cm??? LV Ejection Fraction MOD 2C 50.5 % LV Cardiac Index MOD 2C 1945.8 cm???/min???m??? LV Diastolic Length 2C 8.9 cm LV Systolic Length 2C 7.6 cm LA Volume 49.0 cm??? 18 - 58 / 22 - 52 cm??? LA Volume Index 26.5 cm???/m??? 16 - 28 cm???/m??? M-MODE Aortic Root Diameter MM 3.2 cm AV Cusp Separation MM 1.9 cm DOPPLER AV Peak Velocity 110.3 cm/s AV Peak Gradient 4.9 mmHg MV Area PHT 4.4 cm??? Mitral E Point Velocity 46.9 cm/s Mitral A Point Velocity 50.5 cm/s Mitral E to A Ratio 0.9 MV Deceleration Time 172.8 ms TR Peak Velocity 159.4 cm/s TR Peak Gradient 10.2 mmHg Right Ventricular Systolic Press 15.2 mmHg FINDINGS Left Ventricle Left ventricular ejection fraction is estimated at 50-55 %.Mildly increased left ventricular wall thickness. Left ventricular cavity size normal. Left ventricular systolic function borderline normal Right Ventricle Normal right ventricular size and function. Right ventricular systolic pressure within normal limits. Right Atrium Normal right atrial size. No right atrial thrombus or mass seen. Left Atrium Normal left atrial size. No left atrial thrombus or mass present. Mitral Valve Structurally normal mitral valve. No mitral stenosis, or prolapse.mild mitral regurgitation. Aortic Valve Trileaflet aortic valve. No aortic valve stenosis or regurgitation. Tricuspid Valve Structurally normal tricuspid valve. mild tricuspid regurgitation. Pulmonic Valve Structurally normal pulmonic valve. Trace pulmonic regurgitation. Pericardium No pericardial or pleural effusion. Aorta Normal size aortic root and proximal ascending aorta. CONCLUSIONS 1. Left ventricle systolic function borderline normal with no segmental wall motion abnormality 2. Mild mitral and tricuspid regurgitation Previewed by: Dr. Sterling Christian MD (Electronically Signed) Final Date: 07 August 2024 16:08
[2024-08-07 16:30] LABS: African American GFR (CKD) >90 (>60 ml/min/1.73 sqM); Anion Gap 6 mmol/L; Blood Urea Nitrogen 25 mg/dL (9-20); Calcium 8.5 mg/dL (8.4-10.2); Carbon Dioxide 21 mmol/L (22-30); Chloride 111 mmol/L (98-107); Glucose 105 mg/dL (74-99); Non-African American GFR(CKD) >90 (>60 ml/min/1.73 sqM); Potassium 3.7 mmol/L (3.5-5.1); Sodium 138 mmol/L (137-145)
[2024-08-07 16:37] LABS: Glucose,Whole Blood 135 mg/dL (70-110)
[2024-08-07 20:22] LABS: Glucose,Whole Blood 232 mg/dL (70-110)
[2024-08-08 03:17] VITALS: TEMP 98.2
[2024-08-08 06:19] LABS: Glucose,Whole Blood 116 mg/dL (70-110)
[2024-08-08 07:39] LABS: Basophils % (A) 0 %; Eosinophils # (A) 0.1 k/uL (0-0.7); Eosinophils % (A) 1 %; HCT 44.6 % (39.0-53.0); HGB 14.5 gm/dL (13.0-17.5); Lymphocytes # (A) 3.2 k/uL (1.0-4.8); Lymphocytes % (A) 35 %; MCHC 32.5 g/dL (31.0-37.0); MCV 92.2 fL (80.0-100.0); Mean Platelet Volume 8.1; Monocytes # (A) 0.6 k/uL (0-1.0); Monocytes % (A) 7 %; Neutrophils % (A) 56 %; Platelet Count 227 k/uL (150-450); RBC 4.84 m/uL (4.30-5.90); RDW 13.5 % (11.5-15.5); WBC 8.9 k/uL (3.8-10.6)
[2024-08-08 07:56] LABS: African American GFR (CKD) 82 (>60 ml/min/1.73 sqM); Anion Gap 6 mmol/L; Blood Urea Nitrogen 21 mg/dL (9-20); Calcium 8.9 mg/dL (8.4-10.2); Carbon Dioxide 27 mmol/L (22-30); Chloride 105 mmol/L (98-107); Glucose 119 mg/dL (74-99); Non-African American GFR(CKD) 71 (>60 ml/min/1.73 sqM); Sodium 138 mmol/L (137-145)
[2024-08-08] MEDS ORDERED: lisinopriL 5 MG TAB PO SCH (09:00)
[2024-08-08 09:29] VITALS: BP 122/77; PULSE 82
--- NOTE | 2024-08-08 10:42 | P.DS ---
Providers Date of admission: 08/06/24 20:13 Expected date of discharge: 08/08/24 Attending physician: Alisia Rizzo MD Consults: 08/06/24 20:13 Consult Physician Routine Consulting Provider: Darryl Fields Consult Reason/Comments: CP/NSTEMI Do you want consulting provider notified?: Yes Primary care physician: Pj Lucia Hospital Course: # NSTEMI Type II secondary to coronary vasospasm #Mild non-obstructive CAD #Diabetes mellitus #Hypertension #Hyperlipidemia #Migraine Headaches Hospital course: 43-year-old male with diabetes mellitus, hypertension and hyperlipidemia presented to the ER with chief complaint of intermittent substernal chest pain over the past several days. Initial lab work in the ER shows uptrending troponin levels and EKG is positive for biphasic T waves in V2 and V3. Cardiology was consulted and patient underwent LHC. Results of the catheterization show lesion in the left circumflex which was reduced to 10% aft er administration of intra-arterial nitric oxide, consistent with coronary vasospasm and type II MA. Patient was subsequently started on a calcium channel jennifer, metoprolol, aspirin, statin was increased. Patient was cleared for discharge by consulting service and recommended for follow-up with primary care physician as well as cardiology in a week. Patient's prescriptions were sent to [facility]. I spent 32 minutes coordinating this discharge Gen: In NAD, non-toxic HEENT: normocephalic, atraumatic, hearing acuity is intant, mucous membranes moist CVS: perfusing all extremities well, no pitting edema, Respiratory: symmetric chest expansion, no accessory muscle use, GI: soft, NTTP, ND, : no suprapubic tenderness, no CVA tenderness MSK/Derm: no rashes, cyanosis Neuro: CN II-XII intact, no motor weakness, Psych: cooperative, euthymic mood, judgment and insight is intact Patient Condition at Discharge: Good Plan - Discharge Summary Discharge Rx Participant: No New Discharge Prescriptions: New Metoprolol Tartrate [Lopressor] 25 mg PO BID #60 tab Nitroglycerin Sl Tabs [Nitrostat] 0.4 mg SUBLINGUAL Q5M PRN #10 tab PRN Reason: Chest Pain amLODIPine [Norvasc] 5 mg PO DAILY #30 tab Aspirin 81 mg PO DAILY #30 tab Atorvastatin [Lipitor] 80 mg PO HS #30 tab Continue metFORMIN HCL [Glucophage] 500 mg PO BID sitaGLIPtin [Januvia] 50 mg PO DAILY Amitriptyline HCl [Elavil] 20 mg PO HS Topiramate [Topamax] 25 mg PO DAILY lisinopriL [Zestril] 2.5 mg PO DAILY Topiramate [Topamax] 50 mg PO HS Cyclobenzaprine [Flexeril] 10 mg PO HS PRN PRN Reason: Muscle Spasm Discontinued Atorvastatin [Lipitor] 40 mg PO HS Propranolol LA [Inderal LA] 60 mg PO DAILY Discharge Medication List metFORMIN HCL [Glucophage] 500 mg PO BID 09/01/19 [History] Amitriptyline HCl [Elavil] 20 mg PO HS 12/23/23 [History] Cyclobenzaprine [Flexeril] 10 mg PO HS PRN 12/23/23 [History] Topiramate [Topamax] 25 mg PO DAILY 12/23/23 [History] Topiramate [Topamax] 50 mg PO HS 12/23/23 [History] lisinopriL [Zestril] 2.5 mg PO DAILY 12/23/23 [History] sitaGLIPtin [Januvia] 50 mg PO DAILY 12/23/23 [History] Aspirin 81 mg PO DAILY #30 tab 08/08/24 [Rx] Atorvastatin [Lipitor] 80 mg PO HS #30 tab 08/08/24 [Rx] Metoprolol Tartrate [Lopressor] 25 mg PO BID #60 tab 08/08/24 [Rx] Nitroglycerin Sl Tabs [Nitrostat] 0.4 mg SUBLINGUAL Q5M PRN #10 tab 08/08/24 [Rx] amLODIPine [Norvasc] 5 mg PO DAILY #30 tab 08/08/24 [Rx] Follow up Appointment(s)/Referral(s): Sterling Christian MD [STAFF PHYSICIAN] - 1 Week Pj Lucia DO [Primary Care Provider] - 1-2 days Discharge Disposition: HOME SELF-CARE
[2024-08-08 11:17] LABS: Glucose,Whole Blood 166 mg/dL (70-110)
--- NOTE | 2024-08-08 12:53 | P.PN ---
Subjective HISTORY OF PRESENT ILLNESS: This is a 43-year-old male with a past medical history significant for hyperlipidemia, diabetes, and headaches. 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 We have been asked to see the patient in consultation for chest pain. Patient examined at the bedside. Patient states for the past 3 days he has been having chest discomfort. He states that he was started on steroids for some neck discomfort and was told he may have chest pain as a side effect of the steroids so he initially did not think much of it. He states the pain would last for about 20 minutes when it would, and then subside on its own. He states he had another episode of chest discomfort yesterday at work when his boss recommended that he come to the hospital for further evaluation. Patient states that he has radiation into his left arm and shoulder. Denies any nausea or vomiting. Denies any shortness of breath. The patient did have another episode of chest discomfort this morning. He received sublingual nitro with relief of his chest pain. He is a non-smoker. He reports occasional alcohol use. He denies any drug use occluding marijuana. He reports a family history of premature coronary artery disease and states that his dad had a CABG when he was in his late 40s and has also had multiple stents. The patient is prescribed lisinopril and propranolol on an outpatient basis but he denies a history of hypertension. He states that he was prescribed propranolol for his headaches. DIAGNOSTICS: - EKG reveals sinus mechanism with biphasic T waves V2-V3 - Chest xray negative for acute process - Laboratory data: WBC 12.3. Hemoglobin 14.1. Platelet count 216. Sodium 136. Potassium 4.1. BUN 25. Creatinine 0.94. Troponin 0.035. 0.058. 0.064. 0.034. - Current home cardiac medications include Lipitor 40 mg at night, lisinopril 2.5 mg daily, propranolol 60 mg daily - Most recent echocardiogram obtained in December 2023 revealed ejection fraction 55%, trace MR - Cardiac catheterization history: patient denies 08/08/2024 Patient underwent cardiac cath yesterday with Dr. Christian revealing diffuse vasospastic disease in the proximal and mid LAD, resolved with nitro, mild disease in the proximal RCA, no obstructive disease in left circumflex, and normal ventricle size and systolic function. Patient examined this morning the bedside. Patient denies any chest pain or pressure. Denies any shortness of breath. Blood pressure is significantly improved today. Echocardiogram completed revealing ejection fraction 50 to 55%, mild MR, mild TR PHYSICAL EXAM: VITAL SIGNS: Reviewed. GENERAL: Well-developed in no acute distress. HEENT: Head is normocephalic. Pupils are equal, round. Sclerae anicteric. Mucous membranes of the mouth are moist. Neck supple. No JVD or thyromegaly LUNGS: Respirations even and unlabored. Lungs essentially clear to auscultation bilaterally. HEART: Regular rate and rhythm. S1 and S2 heard. ABDOMEN: Soft. Nondistended. Nontender. EXTREMITIES: Normal range of motion. No clubbing or cyanosis. Peripheral pulses intact. No lower extremity edema NEUROLOGIC: Awake and alert. Oriented x 3. ASSESSMENT: Chest pain Non-STEMI, status post cardiac catheterization revealing diffuse vasospastic disease of the LAD Hypertension Hyperlipidemia Diabetes History of headaches Family history of premature coronary artery disease PLAN: Continue current cardiac medications Patient may be discharged home today from a cardiac standpoint Patient is not to return to work until he follows up in the office with Dr. Christian Patient to follow-up postdischarge in 1 week Nurse practitioner note has been reviewed by physician. Signing provider agrees with the documented findings, assessment, and plan of care documented by CHILD CARE PROVIDER as a scribe. Objective - Vital Signs Vital signs: Vital Signs Temp 98.2 F 08/08/24 03:17 Pulse 82 08/08/24 08:00 Resp 16 08/08/24 08:00 BP 122/77 08/08/24 08:00 Pulse Ox 97 08/08/24 08:00 FiO2 Intake & Output 08/07/24 08/08/24 08/08/24 18:59 06:59 18:59 Intake Total 488.872 240 Balance 488.872 240 Weight 72.8 kg Intake: IV 200 Intake, IV Titration 170.872 Amount Heparin Sod,Pork in 0.45% 170.872 NaCl 25,000 unit In 0.45 % NaCl 1 250ml.bag @ 12 UNITS/KG/HR 9.253 mls/hr IV .Q24H JAMI Rx#: [id number] Oral 118 240 Other: Voiding Method Toilet Toilet # Voids 1 1 - Labs CBC & Chem 7: 08/08/24 07:13 08/08/24 07:13 Labs: Abnormal Lab Results - Last 24 Hours (Table) 08/07/24 08/07/24 08/07/24 Range/Units 15:38 16:35 20:21 APTT (22.0-30.0) sec Chloride 111 H (98-107) mmol/L Carbon Dioxide 21 L (22-30) mmol/L BUN 25 H (9-20) mg/dL Glucose 105 H (74-99) mg/dL POC Glucose (mg/dL) 135 H 232 H (70-110) mg/dL 08/08/24 08/08/24 08/08/24 Range/Units 06:18 07:13 07:13 APTT 21.5 L (22.0-30.0) sec Chloride (98-107) mmol/L Carbon Dioxide (22-30) mmol/L BUN 21 H (9-20) mg/dL Glucose 119 H (74-99) mg/dL POC Glucose (mg/dL) 116 H (70-110) mg/dL 08/08/24 Range/Units 11:16 APTT (22.0-30.0) sec Chloride (98-107) mmol/L Carbon Dioxide (22-30) mmol/L BUN (9-20) mg/dL Glucose (74-99) mg/dL POC Glucose (mg/dL) 166 H (70-110) mg/dL
== END 2024-08-08 12:07 | disposition home or self-care (01) | DRG 282 ==
LOC: EC 17:20 → 3SCARD 20:13
PROVIDERS: ADMIT Internal Medicine; ATTEND Internal Medicine
DX: I25.111 Atherosclerotic heart disease of native coronary artery with angina pectoris with documented spasm (principal); I21.A1 Myocardial infarction type 2; E11.9 Type 2 diabetes mellitus without complications; E78.5 Hyperlipidemia, unspecified; I10 Essential (primary) hypertension; G43.909 Migraine, unspecified, not intractable, without status migrainosus; Z79.82 Long term (current) use of aspirin; Z79.84 Long term (current) use of oral hypoglycemic drugs; Z79.899 Other long term (current) drug therapy; Z82.49 Family history of ischemic heart disease and other diseases of the circulatory system
CPT/HCPCS: 36415; 71046; 80048; 80053; 80061; 83690; 83735; 84484; 85025; 85610; 85730; 93005; 93306; 93458; 96365; 99291

== ENCOUNTER → 2024-12-22 | Outpatient (CLI) | payer BC ==
[2024-12-22 10:55] LABS: ALT 37 U/L (10-49); AST 31 U/L (14-35); Chol/HDL Ratio 2.76 Ratio; LDL Cholesterol,Calculated 16.2 mg/dL (0.0-131.0)
== END | disposition home or self-care (01) ==
LOC: LABWHC1 08:15
PROVIDERS: ATTEND Internal Medicine Interventional Cardiology
DX: E78.2 Mixed hyperlipidemia (principal)
CPT/HCPCS: 36415; 80061; 84450; 84460